=== PATIENT | male | born 1955 | race Caucasian/White ===

== ENCOUNTER 2018-01-22 19:03 | Emergency (ER) | payer OTHER, SELFPAY ==
[2018-01-22 19:38] VITALS: BP 122/70; PULSE 80; RESP 16; TEMP 36.9; O2SAT 98; BMI 24.5
--- NOTE | 2018-01-22 20:40 | ED_ITS ---
HPI - Skin/Abscess/Foreign Bdy <ETHEL Zaragoza - Last Filed: 01/22/18 22:43> General Chief complaint: Skin/Abscess/Foreign Body Stated complaint: FINGER CUT Time Seen by Provider: 01/22/18 20:40 History of Present Illness HPI narrative: 62-year-old male here for complaint of laceration to his left ring finger. He states that he was using a razor blade knife to cut some felt when he accidentally cut his finger. Laceration is into the distal pad of the left ring finger. He states his liver status was approximately 2 years ago. He denies any other injuries or concerns at this point. complaint: laceration Related Data Home Medications Medication Instructions Recorded Confirmed [ENBREL] QWEEK #0 08/30/08 Previous Rx's Medication Instructions Recorded sulfamethoxazole-trimethoprim 1 tab PO BID #10 tab 03/19/16 Allergies Allergy/AdvReac Type Severity Reaction Status Date / Time No Known Drug Allergies Allergy Verified 01/22/18 19:42 Review of Systems <ETHEL Zaragoza - Last Filed: 01/22/18 22:43> Constitutional Denies chills, Denies fever(s), Denies lethargy and Denies weakness Eyes Denies change in vision, Denies eye discharge, Denies irritation and Denies loss of vision ENT Ears, Nose, Mouth, and Throat: Denies change in voice, Denies neck pain and Denies sore throat Cardiovascular Denies chest pain, Denies irregular heart rhythm, Denies lightheadedness, Denies palpitations, Denies dyspnea, Denies dyspnea on exertion and Denies orthopnea Respiratory Denies cough, Denies dyspnea, Denies dyspnea on exertion and Denies wheezing Gastrointestinal Gastrointestinal: Denies abdominal pain, Denies change in bowel habits, Denies diarrhea, Denies nausea and Denies vomiting Genitourinary Denies hematuria, Denies flank pain, Denies urinary incontinence and Denies urinary urgency Musculoskeletal Denies neck pain Comments: 1.5 cm laceration to distal pad of left index finger. Integumentary/Breasts Denies pruritus, Denies erythema, Denies rash and Denies wounds Neurologic Denies confusion, Denies loss of vision and Denies weakness Psychiatric Denies anxiety, Denies confusion, Denies depression, Denies homicidal ideation and Denies suicidal ideation Endocrine Denies palpitations Hematologic/Lymphatic Denies easy bruising Allergic/Immunologic Denies wheezing Exam <ETHEL Zaragoza - Last Filed: 01/22/18 22:43> Initial Vital Signs Initial Vital Signs: Vital Signs Temperature 98.5 F 01/22/18 19:38 Pulse Rate 80 01/22/18 19:38 Respiratory Rate 16 01/22/18 19:38 Blood Pressure 122/70 H 01/22/18 19:38 Pulse Oximetry 98 01/22/18 19:38 Const General: cooperative and well developed Nutritional Appearance: well nourished Orientation: alert, awake, oriented x3 and not confused HENMT Mouth: oral mucosae normal and moist mucous membranes Eyes General: appearance normal, both eyes and all related structures Eyelids: eyelids normal Conjunctivae: conjunctivae normal Sclera: sclerae normal Pupils: PERRL EOM: EOM intact bilaterally Resp Effort & Inspection: normal respiratory effort, able to speak in complete sentences, no respiratory distress and no use of accessory muscles Auscultation: clear to auscultation bilaterally, no rales, no rhonchi and wheezes (Slight expiratory wheezing bilateral lower lobes) inspiratory wheezes and lower bilaterally Cardio Rate: regular rate Rhythm: regular rhythm Heart Sounds: no click, no gallops, no murmurs and no rubs Pulses: normal peripheral pulses GI Inspection: non-distended Palpation: soft, no hepatosplenomegaly, No guarding, No pulsatile mass and No tender Auscultation: normal bowel sounds Skin General: no rashes or lesions noted, No jaundice and No petechiae Neuro General: alert, oriented x3, gait normal and no focal motor deficits Speech: speech normal <Chidi Garcia DO - Last Filed: 01/23/18 02:11> Initial Vital Signs Initial Vital Signs: Vital Signs Temperature 98.5 F 01/22/18 19:38 Pulse Rate 80 01/22/18 19:38 Respiratory Rate 16 01/22/18 19:38 Blood Pressure 122/70 H 01/22/18 19:38 Pulse Oximetry 98 01/22/18 19:38 Procedures <ETHEL Zaragoza - Last Filed: 01/22/18 22:43> Laceration Repair Laceration 1: Site: hand and other (Pat of left ring finger) Side (If applicable): left Size (cm): 1.5 Description: linear Depth: simple, single layer Local Anesthetic: lidocaine 1% Amount of anesthesia used (mL): 2 Pre-repair: wound explored and irrigated extensively Skin layer closed with: nylon Size (cm): 5-0 Number of sutures: 3 Technique: simple, interrupted Size: 5-0 Course <ETHEL Zaragoza - Last Filed: 01/22/18 22:43> Vital Signs - 8 hr 01/22/18 19:38 01/22/18 21:34 01/22/18 22:27 Temperature 98.5 F 98.5 F Pulse Rate 80 80 79 Respiratory Rate 16 16 14 Blood Pressure 122/70 H 122/70 H 123/80 H Pulse Oximetry 98 98 97 <Chidi Garcia DO - Last Filed: 01/23/18 02:11> Vital Signs - 8 hr 01/22/18 19:38 01/22/18 21:34 01/22/18 22:27 Temperature 98.5 F 98.5 F Pulse Rate 80 80 79 Respiratory Rate 16 16 14 Blood Pressure 122/70 H 122/70 H 123/80 H Pulse Oximetry 98 98 97 MDM - Skin/Abscess/Foreign Bdy <ETHEL Zaragoza - Last Filed: 01/22/18 22:43> MDM Narrative Medical decision making narrative: Laceration to left ring finger was closed with 3 sutures. Sutures to be removed in 7-10 days. Wound dressed with bacitracin and a dressing. Keep her original wound dressing on for 24 hr. After this timeframe may shower briefly. Dry wound after shower and redressed with bacitracin dressing. Dress wound daily with bacitracin and a dressing until healed. [id number] Tylenol or Motrin as needed for any discomfort. Follow up with primary care provider. For any worsening symptoms or signs of infection return emergency room. Discharge Plan Departure Patient Disposition: Home, Self-Care Clinical Impression: Laceration of left ring finger Discharge Date/Time: 01/22/18 22:28 Interventions: ED Discharge Assessment Last Done: 01/22/18 22:27 Instructions: DI for Laceration Repair -- Finger Activity Restrictions/Additional Instructions: Laceration to left ring finger was closed with 3 sutures. Sutures to be removed in 7-10 days. Wound dressed with bacitracin and a dressing. Keep her original wound dressing on for 24 hr. After this timeframe may shower briefly. Dry wound after shower and redressed with bacitracin dressing. Dress wound daily with bacitracin and a dressing until healed. [id number] Tylenol or Motrin as needed for any discomfort. Follow up with primary care provider. For any worsening symptoms or signs of infection return emergency room. Prescriptions: No Action [ENBREL] QWEEK Qty: 0 RF: 0 sulfamethoxazole-trimethoprim 800 MG/160 MG tablet 1 tab PO BID Qty: 10 RF: 0 Referrals: [facility] [Provider Group] <Chidi Garcia, - Last Filed: 01/23/18 02:11> Cosign ED Attending [place] Attestation: I was immediately available in the department for consultation. Documentation has been reviewed. I agree with assessment and plan.
[2018-01-22 21:34] VITALS: BP 122/70; PULSE 80; RESP 16; TEMP 36.9; O2SAT 98; BMI 24.5
--- NOTE | 2018-01-22 21:36 | PC.NURSE ---
PT has lac to left ring finger from razor blade, denies pain, bleeding controlled, cms intact.
[2018-01-22 22:27] VITALS: BP 123/80; PULSE 79; RESP 14; O2SAT 97
== END 2018-01-22 22:28 | disposition home or self-care (01) ==
PROVIDERS: Emergency Provider Nurse Practitioner Family
DX: S61.215A Laceration without foreign body of left ring finger without damage to nail, initial encounter (principal); W26.0XXA Contact with knife, initial encounter
CPT/HCPCS: 12001; 99282; 99283

== ENCOUNTER 2020-05-24 19:25 | Inpatient (IN) | payer OTHER, SELFPAY ==
[2020-05-24 19:50] VITALS: BP 136/80; PULSE 113; RESP 16; TEMP 36.6; O2SAT 97; BMI 25.8
--- NOTE | 2020-05-24 21:29 | DI.RAD.S_ITS ---
PROCEDURE: XR THORACIC SPINE 2V INDICATIONS: midthorasic severe pain TECHNIQUE: 2 views of the thoracic spine were acquired. COMPARISON: [facility], , CHEST 2VW, 01/21/2014, 13:07. FINDINGS: Bones: No fractures or dislocations. No suspicious bony lesions. Twelve pairs of ribs are noted, and appear intact where visualized. Multilevel degenerative disc disease. Soft tissues: No paravertebral stripe thickening. Biapical lung scarring is noted which does not appear significantly changed compared to prior chest x-ray IMPRESSION: No fracture. No acute osseous lesion. If symptoms and/or clinical suspicion for pathology persists, evaluation with MRI may be helpful for further assessment. Dictated by: Fiona Durand MD, PhD on 05/25/2020 at 8:51 Approved by: Fiona Durand MD, PhD on 05/25/2020 at 8:53
--- NOTE | 2020-05-24 21:30 | DI.CT.S_ITS ---
PROCEDURE: CT ABDOMEN PELVIS W CON INDICATIONS: epigastric pain radiating to spine TECHNIQUE: After the administration of intravenous contrast, 5 mm thick sections acquired from the diaphragm to the symphysis. 5 mm coronal and sagittal reformats were acquired. For radiation dose reduction, the following was used: automated exposure control, adjustment of mA and/or kV according to patient size. COMPARISON: None. FINDINGS: Image quality: Excellent. ABDOMEN: Lung bases: Lung bases are abnormal with severe emphysematous change and lung scarring but no mass or pneumonia is seen. Heart size is normal. Solid organs: Liver is normal in size and enhancement. Gallbladder contains multiple moderate and large calculi, without evidence of definite acute cholecystitis or adjacent biliary obstruction.. Biliary system is non dilated. Pancreas enhances normally. Spleen is normal in size and enhancement. No adrenal nodules. Kidneys demonstrate normal size and enhancement, without hydronephrosis. Peritoneum and bowel: Bowel loops demonstrate normal wall thickness and caliber. No free fluid or air. There are several small gas bubbles that appear eccentric at the right anterolateral margin of the duodenal bulb, conceivably a manifestation of peptic ulcer disease. This is best seen on series 2 image 29. However, immediate adjacent prominent edema in the surrounding fat is not seen. There also is a finding of mild low attenuation with mild stranding in the fat adjacent to the pancreatic head best seen on series 2, image 37. Nodes and vessels: No retroperitoneal or mesenteric adenopathy by size criteria. Aorta and inferior vena cava are normal in size. Miscellaneous: No ventral hernias. PELVIS: Genitourinary: Bladder wall thickness is normal. Miscellaneous: No inguinal hernias or adenopathy. Bones: No suspicious bony lesions. No vertebral body compression fractures. IMPRESSION: There are 3 separate finding centered at the right upper quadrant as potential etiology for the symptomatology reported. These include moderate and large gallstones within the gallbladder lumen. Secondly, there are eccentric anterolateral duodenal bulb gas bubbles that conceivably could be within the wall of the duodenum rather than intraluminal. Peptic ulcer disease could produce that appearance. Finally, there is suspected mild pancreatitis at the pancreatic head causing slight adjacent fat stranding and low-attenuation at the pancreatic head without mass. Severe emphysematous change partially visualized at the lung bases. Dictated by: Cornelius Kumar M.D. on 05/25/2020 at 8:24 Approved by: Cornelius Kumar M.D. on 05/25/2020 at 8:35
[2020-05-24 21:57] LABS: Add Manual Diff / Slide Review NO; Basophils Absolute Auto 0 /uL (0-100); Basophils Percent Auto 0.3 % (0-2); Eosinophils Absolute Auto 100 /uL (0-450); Eosinophils Percent Auto 0.6 % (2-4); Hematocrit 45.3 % (41-53); Hemoglobin 15.4 g/dL (13.5-17.5); Lymphocytes Absolute Auto 900 /uL (1100-4500); Mean Corpuscular Hemoglobin 30.5 PG (26-34); Mean Corpuscular Volume 89.7 fL (80-100); Monocytes Absolute Auto 1700 /uL (0-900); Monocytes Percent Auto 11.7 % (3-14); Neutrophils Absolute Auto 12100 /uL (1500-7000); Neutrophils Percent Auto 81.4 % (50-75); Platelet Count 288 X10^3/uL (150-400); Red Blood Cell Count 5.05 X10^6/uL (4.5-5.9); Red Cell Distribution Width 13.6 % (11.6-14.8); White Blood Cell Count 14.8 X10^3/uL (4.5-11.0)
[2020-05-24] MEDS: HYDROMORPHONE 0.5 MG INJ IV ×2 (21:58→23:19)
[2020-05-24 22:09] LABS: COVID19 -Nasal RAPID Negative (Negative)
[2020-05-24 22:13] LABS: Alanine Aminotransferase 242 IU/L (<50); Albumin 4.4 g/dL (3.5-5.0); Alkaline Phosphatase 343 U/L (38-126); Aspartate Aminotransferase 63 IU/L (17-59); BUN Creatinine Ratio 12.5 (6-22); Blood Urea Nitrogen 9 mg/dL (9-20); Calcium 9.4 mg/dL (8.4-10.2); Carbon Dioxide 28 mmol/L (22-32); Chloride 95 mmol/L (98-107); Estimated Glomerular Filt Rate > 60.0 mL/min (>60); Globulin 4.4 g/dL (1.7-4.1); Glucose 124 mg/dL (80-110); HEMOLYSIS < 15 (0-50); Lipase 303 U/L (23-300); Magnesium 1.7 mg/dL (1.6-2.3); Potassium 3.6 mmol/L (3.4-5.1); Sodium 131 mmol/L (137-145); Total Protein 8.8 g/dL (6.3-8.2)
[2020-05-24 22:17] LABS: Lactate (Lactic Acid) 1.3 mmol/L (0.7-2.1)
[2020-05-24 22:24] LABS: Troponin I < 0.012 ng/mL (0.01-0.034)
[2020-05-24 22:25] LABS: Procalcitonin 0.19 ng/mL (<0.5)
[2020-05-24 22:43] VITALS: PULSE 106; RESP 24; O2SAT 98
[2020-05-24 22:46] VITALS: BP 142/90; PULSE 105; RESP 24; O2SAT 96
[2020-05-24] MEDS: MAG HYDROX/ALUMINUM/SIMETH SUS 20 ML, LIDOCAINE VISCOUS 2% 15 ML PO (22:55)
[2020-05-24 23:00] VITALS: BP 153/94; PULSE 103; RESP 24; O2SAT 96
--- NOTE | 2020-05-24 23:16 | ED.GENADULT ---
HPI - General Adult <Laura Kumar MD - Last Filed: 05/26/20 03:15> General Chief complaint: Back Pain/Injury Stated complaint: sharp pain in back Time Seen by Provider: 05/24/20 21:17 History of Present Illness HPI narrative: 65-year-old gentleman with ankylosing spondylitis currently on Enbrel and daily Motrin, restless leg syndrome, presents severe midthoracic back pain that is been present for 3 days and is getting worse. On further questioning he also notes that he has had some mid abdominal pain, mild abdominal distension and his last bowel movement was normal yesterday. Reports no black stools, no chills no fevers no dizziness but he states the pain is severe enough that he can not get comfortable. It is worse with movement but not with deep breathing. He reports no cough, fevers, chills, wheeze, lower extremity edema or orthopnea. Related Data Home Medications Medication Instructions Recorded Confirmed cholecalciferol (vitamin D3) 25 mcg PO DAILY 05/25/20 05/25/20 etanercept 50 mg SUBCUT WEEKLY 05/25/20 05/25/20 ferrous sulfate 325 mg PO TID 05/25/20 05/25/20 gabapentin 300 mg PO BID 05/25/20 05/25/20 ibuprofen 600 mg PO Q6H PRN 05/25/20 05/25/20 pramipexole 1 mg PO BID 05/25/20 05/25/20 Allergies Allergy/AdvReac Type Severity Reaction Status Date / Time No Known Drug Allergies Allergy Verified 01/22/18 19:42 Review of Systems <Laura Kumar MD - Last Filed: 05/26/20 03:15> Review of Systems Narrative: Remainder of review of systems including constitutional, ENT, cardiovascular, respiratory, GI, , musculoskeletal, skin, neurologic and psychiatric systems reviewed and are unremarkable except as noted in HPI. Patient History <Laura Kumar MD - Last Filed: 05/26/20 03:15> Medical History Ankylosing spondylitis (Acute) Restless leg syndrome (Acute) Spontaneous pneumothorax (Acute) Social History household members: spouse Smoking Status: Former smoker Smoking Status: Current every day smoker alcohol intake frequency: other Substance Use Type: does not use Exam <Laura Kumar MD - Last Filed: 05/26/20 03:15> Narrative Exam Narrative: General: Pale with significant pain midthoracic spine. Able to give a complete and coherent history. Well-nourished well-developed HEENT: Moist mucous membranes, normal sclera with reactive pupils, Neck: No JVD, supple Respiratory: Lungs are clear to auscultation, no wheezing no rales no rhonchi. Full and symmetrical air movement Cardiac: Mild tachycardia but Regular rate and rhythm no murmurs no bruits Abdomen: Tender in the epigastrium without rebound or guarding, mild distension with hypoactive bowel tones, no flank pain Spine: There is no point tenderness nor paraspinous muscle spasm around the area of maximum pain (approximately T6-T10) Skin: Pale and dry, no rashes Neurologic: Grossly neurologically intact with no obvious asymmetries or abnormalities Extremities: No trauma, well perfused Psych: Cooperative, appropriate insight and affect Initial Vital Signs Initial Vital Signs: Vital Signs Temperature 97.9 F 05/24/20 19:50 Pulse Rate 113 H 05/24/20 19:50 Respiratory Rate 16 05/24/20 19:50 Blood Pressure 136/80 05/24/20 19:50 Pulse Oximetry 97 05/24/20 19:50 <Kylie Sena DO - Last Filed: 05/25/20 18:07> Initial Vital Signs Initial Vital Signs: Vital Signs Temperature 97.9 F 05/24/20 19:50 Pulse Rate 113 H 05/24/20 19:50 Respiratory Rate 16 05/24/20 19:50 Blood Pressure 136/80 05/24/20 19:50 Pulse Oximetry 97 05/24/20 19:50 Course <Laura Kumar MD - Last Filed: 05/26/20 03:15> Orders Ordered: Docusate Sodium (Colace) 100 mg PO BID [facility] Last Admin: 05/25/20 21:53 Dose: 100 mg Documented by: MSTEWEMERY Gabapentin (Neurontin) 300 mg PO BID [facility] Last Admin: 05/25/20 21:53 Dose: 300 mg Documented by: MSTEWART Heparin Sodium (Porcine) (Heparin) 5,000 unit SUBCUT BID [facility] Last Admin: 05/25/20 21:54 Dose: 5,000 unit Documented by: TAMANNA Hydromorphone HCl (Dilaudid) 0.5 mg IV Q15MIN PRN PRN Reason: Pain, Last Admin: 05/26/20 00:48 Dose: 0.5 mg Documented by: Admin: 05/25/20 07:34 Dose: 0.5 mg Documented by: PAULINE Piperacillin/Tazobactam/Dextrose (Zosyn) 3.375 gm in 50 mls @ 100 mls/hr IV Q6H [facility] Last Infusion: 05/26/20 01:29 Dose: 0 mls/hr Documented by: Admin: 05/26/20 00:40 Dose: 100 mls/hr Documented by: Infusion: 05/25/20 20:00 Dose: 0 mls/hr Documented by: Admin: 05/25/20 19:30 Dose: 100 mls/hr Documented by: Infusion: 05/25/20 14:34 Dose: 0 mls/hr Documented by: Admin: 05/25/20 13:23 Dose: 100 mls/hr Documented by: Infusion: 05/25/20 08:30 Dose: 0 mls/hr Documented by: Admin: 05/25/20 07:35 Dose: 100 mls/hr Documented by: PAULINE Lactated Ringer's (Lactated Ringers) 1,000 mls @ 150 mls/hr IV CONT [facility] Last Admin: 05/26/20 00:41 Dose: 150 mls/hr Documented by: Infusion: 05/26/20 00:28 Dose: 150 mls/hr Documented by: Admin: 05/25/20 17:47 Dose: 150 mls/hr Documented by: Infusion: 05/25/20 17:22 Dose: 150 mls/hr Documented by: Admin: 05/25/20 10:41 Dose: 150 mls/hr Documented by: PAULINE Influenza Virus Vaccine (Flu Vaccine) 0.5 ml IM .ONCE ONE Stop: 05/26/20 09:01 Ondansetron HCl (Zofran) 4 mg IV Q6HR PRN PRN Reason: Nausea And Vomiting Pantoprazole Sodium (Protonix) 40 mg IV BID [facility] Last Admin: 05/25/20 21:54 Dose: 40 mg Documented by: Admin: 05/25/20 14:34 Dose: 40 mg Documented by: TESSA Pramipexole Dihydrochloride (Mirapex) 1 mg PO BID [facility] Last Admin: 05/25/20 21:54 Dose: 1 mg Documented by: TAMANNA Discontinued Medications Al Hydrox/Mg Hydrox/Simethicone 20 ml/ Lidocaine HCl 15 ml 0 ml PO NOW ONE Stop: 05/24/20 22:48 Last Admin: 05/24/20 22:55 Dose: 35 ml Documented by: KATELYNN Hydromorphone HCl (Dilaudid) 0.5 mg IV Q15MIN PRN PRN Reason: Pain, Last Admin: 05/25/20 21:57 Dose: 0.5 mg Documented by: Admin: 05/25/20 14:34 Dose: 0.5 mg Documented by: Admin: 05/25/20 09:55 Dose: 0.5 mg Documented by: Admin: 05/25/20 03:43 Dose: 0.5 mg Documented by: Admin: 05/25/20 01:19 Dose: 0.5 mg Documented by: Admin: 05/24/20 23:19 Dose: 0.5 mg Documented by: Admin: 05/24/20 21:58 Dose: 0.5 mg Documented by: KATELYNN Piperacillin/Tazobactam/Dextrose (Zosyn) 3.375 gm in 50 mls @ 100 mls/hr IV NOW ONE Stop: 05/25/20 00:02 Last Infusion: 05/25/20 00:38 Dose: 0 mls/hr Documented by: Admin: 05/24/20 23:53 Dose: 100 mls/hr Documented by: KATELYNN Sodium Chloride (Normal Saline 0.9%) 1,000 mls @ 1,000 mls/hr IV BOLUS ONE Stop: 05/25/20 00:32 Last Infusion: 05/25/20 01:16 Dose: 0 mls/hr Documented by: Admin: 05/24/20 23:54 Dose: 1,000 mls/hr Documented by: KATELYNN Vital Signs Vital signs: Vital Signs - 8 hr 05/25/20 02:30 05/25/20 03:00 05/25/20 03:30 Temperature Pulse Rate 96 H 95 H 98 H Respiratory Rate 16 16 19 Blood Pressure 129/75 139/78 141/80 H Pulse Oximetry 91 93 05/25/20 04:00 05/25/20 04:30 05/25/20 05:00 Temperature Pulse Rate 101 H 99 H 105 H Respiratory Rate 20 18 23 Blood Pressure 132/76 136/76 141/77 H Pulse Oximetry 91 93 93 05/25/20 05:30 05/25/20 06:00 05/25/20 06:29 Temperature Pulse Rate 106 H 104 H 108 H Respiratory Rate 22 25 H 22 Blood Pressure 148/86 H 147/86 H 152/88 H Pulse Oximetry 93 94 94 05/25/20 06:30 05/25/20 07:00 05/25/20 07:30 Temperature Pulse Rate 107 H 106 H 106 H Respiratory Rate 22 28 H 64 H Blood Pressure 152/88 H 160/96 H 159/79 H Pulse Oximetry 94 94 95 05/25/20 07:44 Temperature 99.0 F Pulse Rate Respiratory Rate Blood Pressure Pulse Oximetry <Kylie Sena, - Last Filed: 05/25/20 18:07> Orders Ordered: Docusate Sodium (Colace) 100 mg PO BID [facility] Last Admin: 05/25/20 21:53 Dose: 100 mg Documented by: MSTNOEMY Gabapentin (Neurontin) 300 mg PO BID [facility] Last Admin: 05/25/20 21:53 Dose: 300 mg Documented by: MSTNOEMY Heparin Sodium (Porcine) (Heparin) 5,000 unit SUBCUT BID [facility] Last Admin: 05/25/20 21:54 Dose: 5,000 unit Documented by: TAMANNA Hydromorphone HCl (Dilaudid) 0.5 mg IV Q15MIN PRN PRN Reason: Pain, Last Admin: 05/26/20 00:48 Dose: 0.5 mg Documented by: Admin: 05/25/20 07:34 Dose: 0.5 mg Documented by: PAULINE Piperacillin/Tazobactam/Dextrose (Zosyn) 3.375 gm in 50 mls @ 100 mls/hr IV Q6H [facility] Last Infusion: 05/26/20 01:29 Dose: 0 mls/hr Documented by: Admin: 05/26/20 00:40 Dose: 100 mls/hr Documented by: Infusion: 05/25/20 20:00 Dose: 0 mls/hr Documented by: Admin: 05/25/20 19:30 Dose: 100 mls/hr Documented by: Infusion: 05/25/20 14:34 Dose: 0 mls/hr Documented by: Admin: 05/25/20 13:23 Dose: 100 mls/hr Documented by: Infusion: 05/25/20 08:30 Dose: 0 mls/hr Documented by: Admin: 05/25/20 07:35 Dose: 100 mls/hr Documented by: PAULINE Lactated Ringer's (Lactated Ringers) 1,000 mls @ 150 mls/hr IV CONT [facility] Last Admin: 05/26/20 00:41 Dose: 150 mls/hr Documented by: Infusion: 05/26/20 00:28 Dose: 150 mls/hr Documented by: Admin: 05/25/20 17:47 Dose: 150 mls/hr Documented by: Infusion: 05/25/20 17:22 Dose: 150 mls/hr Documented by: Admin: 05/25/20 10:41 Dose: 150 mls/hr Documented by: PAULINE Influenza Virus Vaccine (Flu Vaccine) 0.5 ml IM .ONCE ONE Stop: 05/26/20 09:01 Ondansetron HCl (Zofran) 4 mg IV Q6HR PRN PRN Reason: Nausea And Vomiting Pantoprazole Sodium (Protonix) 40 mg IV BID [facility] Last Admin: 05/25/20 21:54 Dose: 40 mg Documented by: Admin: 05/25/20 14:34 Dose: 40 mg Documented by: TESSA Pramipexole Dihydrochloride (Mirapex) 1 mg PO BID [facility] Last Admin: 05/25/20 21:54 Dose: 1 mg Documented by: TAMANNA Discontinued Medications Al Hydrox/Mg Hydrox/Simethicone 20 ml/ Lidocaine HCl 15 ml 0 ml PO NOW ONE Stop: 05/24/20 22:48 Last Admin: 05/24/20 22:55 Dose: 35 ml Documented by: KATELYNN Hydromorphone HCl (Dilaudid) 0.5 mg IV Q15MIN PRN PRN Reason: Pain, Last Admin: 05/25/20 21:57 Dose: 0.5 mg Documented by: Admin: 05/25/20 14:34 Dose: 0.5 mg Documented by: Admin: 05/25/20 09:55 Dose: 0.5 mg Documented by: Admin: 05/25/20 03:43 Dose: 0.5 mg Documented by: Admin: 05/25/20 01:19 Dose: 0.5 mg Documented by: Admin: 05/24/20 23:19 Dose: 0.5 mg Documented by: Admin: 05/24/20 21:58 Dose: 0.5 mg Documented by: KATELYNN Piperacillin/Tazobactam/Dextrose (Zosyn) 3.375 gm in 50 mls @ 100 mls/hr IV NOW ONE Stop: 05/25/20 00:02 Last Infusion: 05/25/20 00:38 Dose: 0 mls/hr Documented by: Admin: 05/24/20 23:53 Dose: 100 mls/hr Documented by: KATELYNN Sodium Chloride (Normal Saline 0.9%) 1,000 mls @ 1,000 mls/hr IV BOLUS ONE Stop: 05/25/20 00:32 Last Infusion: 05/25/20 01:16 Dose: 0 mls/hr Documented by: Admin: 05/24/20 23:54 Dose: 1,000 mls/hr Documented by: KATELYNN Reevaluation(s) Reevaluation #1: Patient signed out to myself. Plan for MRCP around 0830, if positive for stone plan to recontact [facility] and gastroentrology, if negative will re-evaluate for final disposition. Patient receiving 2nd dose of Zosyn here in department. NPO. Patient is still quite uncomfortable and given additional dose of pain medication. Time: 07:36 Reevaluation #2: Patient had repeat dose of pain medication I reviewed his MRI results which do not show signs of a common bile duct stone but patient does have gallstones as well as some thickening of the gallbladder, possible mild pancreatitis. There was concern for small gas bubbles in the duodenal area but on MRI this is not appreciated and they suspect it was gas bubbles trapped in the folds of the duodenum. Patient was updated, consultation with General surgery they are currently in the OR but will come see the patient. Plan to continue Zosyn, pain medications and IV fluids Time: 10:15 Consultations Consultation #1: Spoke with Dr. Mathur, discussed concerns for cholecystitis as well as coli lithiasis. Maybe a mild pancreatitis as well. There was not a common bile duct stone noted on MRCP although this was a concern earlier overnight. She will come to see the patient, plan for admission, IV antibiotics, fluids as well as antinausea medications and pain control. Patient has continued to be NPO. Time: 10:17 Vital Signs Vital signs: Vital Signs - 8 hr 05/25/20 02:30 05/25/20 03:00 05/25/20 03:30 Temperature Pulse Rate 96 H 95 H 98 H Respiratory Rate 16 16 19 Blood Pressure 129/75 139/78 141/80 H Pulse Oximetry 91 93 05/25/20 04:00 05/25/20 04:30 05/25/20 05:00 Temperature Pulse Rate 101 H 99 H 105 H Respiratory Rate 20 18 23 Blood Pressure 132/76 136/76 141/77 H Pulse Oximetry 91 93 93 05/25/20 05:30 05/25/20 06:00 05/25/20 06:29 Temperature Pulse Rate 106 H 104 H 108 H Respiratory Rate 22 25 H 22 Blood Pressure 148/86 H 147/86 H 152/88 H Pulse Oximetry 93 94 94 05/25/20 06:30 05/25/20 07:00 05/25/20 07:30 Temperature Pulse Rate 107 H 106 H 106 H Respiratory Rate 22 28 H 64 H Blood Pressure 152/88 H 160/96 H 159/79 H Pulse Oximetry 94 94 95 05/25/20 07:44 Temperature 99.0 F Pulse Rate Respiratory Rate Blood Pressure Pulse Oximetry Medical Decision Making <Laura Kumar MD - Last Filed: 05/26/20 03:15> Medical Records Medical records reviewed: Yes I reviewed the patient's medical records. Lab Data Lab results reviewed: Yes I reviewed the patient's lab results. Result diagrams: 05/25/20 17:08 05/25/20 17:08 Labs: Lab Results 05/24/20 05/24/20 05/24/20 Range/Units 21:40 21:40 21:40 WBC 14.8 H (4.5-11.0) X10^3/uL RBC 5.05 (4.5-5.9) X10^6/uL Hgb 15.4 (13.5-17.5) g/dL Hct 45.3 (41-53) % MCV 89.7 (80-100) fL MCH 30.5 (26-34) PG MCHC 34.0 (30-36) % RDW 13.6 (11.6-14.8) % Plt Count 288 (150-400) X10^3/uL Neut % (Auto) 81.4 H (50-75) % Lymph % (Auto) 6.0 L (25-40) % [place] % (Auto) 11.7 (3-14) % Eos % (Auto) 0.6 L (2-4) % Baso % (Auto) 0.3 (0-2) % Neut # (Auto) 00266 H (5138-2796) /uL Lymph # (Auto) 900 L (7980-6746) /uL [place] # (Auto) 1700 H (0-900) /uL Eos # (Auto) 100 (0-450) /uL Baso # (Auto) 0 (0-100) /uL Sodium 131 L (137-145) mmol/L Potassium 3.6 (3.4-5.1) mmol/L Chloride 95 L (98-107) mmol/L Carbon Dioxide 28 (22-32) mmol/L BUN 9 (9-20) mg/dL Creatinine 0.72 (0.66-1.25) mg/dL Estimated GFR > 60.0 (>60) mL/min BUN/Creatinine Ratio 12.5 (6-22) Glucose 124 H (80-110) mg/dL Lactate (0.7-2.1) mmol/L Calcium 9.4 (8.4-10.2) mg/dL Magnesium 1.7 (1.6-2.3) mg/dL Total Bilirubin 3.0 H (0.2-1.3) mg/dL AST 63 H (17-59) IU/L ALT 242 H (<50) IU/L Alkaline Phosphatase 343 H (38-126) U/L Troponin I < 0.012 (0.01-0.034) ng/mL C-Reactive Protein 7.7 H (<1.0) mg/dL Total Protein 8.8 H (6.3-8.2) g/dL Albumin 4.4 (3.5-5.0) g/dL Globulin 4.4 H (1.7-4.1) g/dL Albumin/Globulin Ratio 1.0 (1.0-2.8) Lipase 303 H (23-300) U/L Procalcitonin (<0.5) ng/mL Urine Color Urine Appearance Urine pH (4.5-8.0) Ur Specific [place] (1.000-1.035) Urine Protein (Negative) Urine Glucose (UA) (Negative) g/dL Urine Ketones (NEGATIVE) Urine Occult Blood (Negative) Urine Nitrate (Negative) Urine Bilirubin (NEGATIVE) Ur Bilirubin Confirm (Negative) Urine Urobilinogen (0.2) E.U./dL Ur Leukocyte Esterase (NEGATIVE) Urine RBC (0-5/HPF) Urine WBC (0-5/HPF) Urine Bacteria (None) Urine Mucus (Negative) Ur Culture Indicated? COVID-19 PCR (Negative) 05/24/20 05/24/20 05/24/20 Range/Units 21:40 21:40 21:40 WBC (4.5-11.0) X10^3/uL RBC (4.5-5.9) X10^6/uL Hgb (13.5-17.5) g/dL Hct (41-53) % MCV (80-100) fL MCH (26-34) PG MCHC (30-36) % RDW (11.6-14.8) % Plt Count (150-400) X10^3/uL Neut % (Auto) (50-75) % Lymph % (Auto) (25-40) % [place] % (Auto) (3-14) % Eos % (Auto) (2-4) % Baso % (Auto) (0-2) % Neut # (Auto) (2773-6361) /uL Lymph # (Auto) (3433-9408) /uL [place] # (Auto) (0-900) /uL Eos # (Auto) (0-450) /uL Baso # (Auto) (0-100) /uL Sodium (137-145) mmol/L Potassium (3.4-5.1) mmol/L Chloride (98-107) mmol/L Carbon Dioxide (22-32) mmol/L BUN (9-20) mg/dL Creatinine (0.66-1.25) mg/dL Estimated GFR (>60) mL/min BUN/Creatinine Ratio (6-22) Glucose (80-110) mg/dL Lactate 1.3 (0.7-2.1) mmol/L Calcium (8.4-10.2) mg/dL Magnesium (1.6-2.3) mg/dL Total Bilirubin (0.2-1.3) mg/dL AST (17-59) IU/L ALT (<50) IU/L Alkaline Phosphatase (38-126) U/L Troponin I (0.01-0.034) ng/mL C-Reactive Protein (<1.0) mg/dL Total Protein (6.3-8.2) g/dL Albumin (3.5-5.0) g/dL Globulin (1.7-4.1) g/dL Albumin/Globulin Ratio (1.0-2.8) Lipase (23-300) U/L Procalcitonin 0.19 (<0.5) ng/mL Urine Color Urine Appearance Urine pH (4.5-8.0) Ur Specific [place] (1.000-1.035) Urine Protein (Negative) Urine Glucose (UA) (Negative) g/dL Urine Ketones (NEGATIVE) Urine Occult Blood (Negative) Urine Nitrate (Negative) Urine Bilirubin (NEGATIVE) Ur Bilirubin Confirm (Negative) Urine Urobilinogen (0.2) E.U./dL Ur Leukocyte Esterase (NEGATIVE) Urine RBC (0-5/HPF) Urine WBC (0-5/HPF) Urine Bacteria (None) Urine Mucus (Negative) Ur Culture Indicated? COVID-19 PCR Negative (Negative) 05/25/20 05/25/20 05/25/20 Range/Units 00:20 05:45 05:45 WBC 15.5 H (4.5-11.0) X10^3/uL RBC 4.47 L (4.5-5.9) X10^6/uL Hgb 13.5 (13.5-17.5) g/dL Hct 40.3 L (41-53) % MCV 90.1 (80-100) fL MCH 30.2 (26-34) PG MCHC 33.5 (30-36) % RDW 13.8 (11.6-14.8) % Plt Count 284 (150-400) X10^3/uL Neut % (Auto) 78.6 H (50-75) % Lymph % (Auto) 7.1 L (25-40) % [place] % (Auto) 12.7 (3-14) % Eos % (Auto) 1.1 L (2-4) % Baso % (Auto) 0.5 (0-2) % Neut # (Auto) 04554 H (0546-4402) /uL Lymph # (Auto) 1100 (9177-6603) /uL [place] # (Auto) 2000 H (0-900) /uL Eos # (Auto) 200 (0-450) /uL Baso # (Auto) 100 (0-100) /uL Sodium 130 L (137-145) mmol/L Potassium 3.6 (3.4-5.1) mmol/L Chloride 94 L (98-107) mmol/L Carbon Dioxide 31 (22-32) mmol/L BUN 10 (9-20) mg/dL Creatinine 0.92 (0.66-1.25) mg/dL Estimated GFR > 60.0 (>60) mL/min BUN/Creatinine Ratio 10.9 (6-22) Glucose 121 H (80-110) mg/dL Lactate (0.7-2.1) mmol/L Calcium 8.6 (8.4-10.2) mg/dL Magnesium (1.6-2.3) mg/dL Total Bilirubin 2.9 H (0.2-1.3) mg/dL AST 50 (17-59) IU/L ALT 173 H (<50) IU/L Alkaline Phosphatase 278 H (38-126) U/L Troponin I (0.01-0.034) ng/mL C-Reactive Protein (<1.0) mg/dL Total Protein 7.9 (6.3-8.2) g/dL Albumin 3.9 (3.5-5.0) g/dL Globulin 4.0 (1.7-4.1) g/dL Albumin/Globulin Ratio 1.0 (1.0-2.8) Lipase (23-300) U/L Procalcitonin (<0.5) ng/mL Urine Color Zainab Urine Appearance Clear Urine pH 6.5 (4.5-8.0) Ur Specific [place] <=1.005 (1.000-1.035) Urine Protein Trace H (Negative) Urine Glucose (UA) Trace H (Negative) g/dL Urine Ketones Trace H (NEGATIVE) Urine Occult Blood 1+ H (Negative) Urine Nitrate Negative (Negative) Urine Bilirubin 1+ H (NEGATIVE) Ur Bilirubin Confirm Positive H (Negative) Urine Urobilinogen 0.2 (0.2) E.U./dL Ur Leukocyte Esterase Negative (NEGATIVE) Urine RBC 0-1/hpf (0-5/HPF) Urine WBC 0-1/hpf (0-5/HPF) Urine Bacteria None seen (None) Urine Mucus 1+ H (Negative) Ur Culture Indicated? Cult not indicated COVID-19 PCR (Negative) Imaging Data CT scan - abdomen/pelvis: Attestation: I personally reviewed and interpreted this imaging study as follows: Radiologist's Impression: Impression: Findings may be related to mild pancreatitis. Cholelithiasis Collapsed descending colon , less likely mild colitis probable slight proximal bowel focal ileus Dr Becky Coffey X-ray two view thoracic spine: Radiologist's Impression: No gross acute fracture seen Becky Coffey MD ECG Data Attestation: I personally reviewed and interpreted this ECG as follows: Interpretation: Sinus rhythm at a rate of 105 normal axis, normal intervals No ischemic changes MDM Narrative Medical decision making narrative: 65-year-old gentleman with initial complaint of midthoracic pain that as studies returning appears that he may have a common bile duct stone with developing pancreatitis. Elevated bilirubin, AST ALT alkaline phosphatase as well as lipase. Slightly elevated white blood cell count. CT scan does not suggest gallbladder wall thickening but does show cholelithiasis. Will begin antibiotics and to make sure that it ascending cholangitis does not develop and will begin working on transfer options to facility has ERCP capacity. Reviewed care with Dr Duncan GI at [facility]. Given the lack of dilated biliary ducts on CT scan her recommendation is MRCP prior to transfer on the possibility that he has passed a stone and has residual findings. Will plan on boarding in the emergency room overnight with MRCP 1st thing in the morning when MRI techs are available. Dispo to follow MRCP read. <Kylie Sena, - Last Filed: 05/25/20 18:07> Lab Data Lab results reviewed: Yes I reviewed the patient's lab results. Labs: Lab Results 05/24/20 05/24/20 05/24/20 Range/Units 21:40 21:40 21:40 WBC 14.8 H (4.5-11.0) X10^3/uL RBC 5.05 (4.5-5.9) X10^6/uL Hgb 15.4 (13.5-17.5) g/dL Hct 45.3 (41-53) % MCV 89.7 (80-100) fL MCH 30.5 (26-34) PG MCHC 34.0 (30-36) % RDW 13.6 (11.6-14.8) % Plt Count 288 (150-400) X10^3/uL Neut % (Auto) 81.4 H (50-75) % Lymph % (Auto) 6.0 L (25-40) % [place] % (Auto) 11.7 (3-14) % Eos % (Auto) 0.6 L (2-4) % Baso % (Auto) 0.3 (0-2) % Neut # (Auto) 31302 H (1691-3861) /uL Lymph # (Auto) 900 L (0964-0968) /uL [place] # (Auto) 1700 H (0-900) /uL Eos # (Auto) 100 (0-450) /uL Baso # (Auto) 0 (0-100) /uL Sodium 131 L (137-145) mmol/L Potassium 3.6 (3.4-5.1) mmol/L Chloride 95 L (98-107) mmol/L Carbon Dioxide 28 (22-32) mmol/L BUN 9 (9-20) mg/dL Creatinine 0.72 (0.66-1.25) mg/dL Estimated GFR > 60.0 (>60) mL/min BUN/Creatinine Ratio 12.5 (6-22) Glucose 124 H (80-110) mg/dL Lactate (0.7-2.1) mmol/L Calcium 9.4 (8.4-10.2) mg/dL Magnesium 1.7 (1.6-2.3) mg/dL Total Bilirubin 3.0 H (0.2-1.3) mg/dL AST 63 H (17-59) IU/L ALT 242 H (<50) IU/L Alkaline Phosphatase 343 H (38-126) U/L Troponin I < 0.012 (0.01-0.034) ng/mL C-Reactive Protein 7.7 H (<1.0) mg/dL Total Protein 8.8 H (6.3-8.2) g/dL Albumin 4.4 (3.5-5.0) g/dL Globulin 4.4 H (1.7-4.1) g/dL Albumin/Globulin Ratio 1.0 (1.0-2.8) Lipase 303 H (23-300) U/L Procalcitonin (<0.5) ng/mL Urine Color Urine Appearance Urine pH (4.5-8.0) Ur Specific [place] (1.000-1.035) Urine Protein (Negative) Urine Glucose (UA) (Negative) g/dL Urine Ketones (NEGATIVE) Urine Occult Blood (Negative) Urine Nitrate (Negative) Urine Bilirubin (NEGATIVE) Ur Bilirubin Confirm (Negative) Urine Urobilinogen (0.2) E.U./dL Ur Leukocyte Esterase (NEGATIVE) Urine RBC (0-5/HPF) Urine WBC (0-5/HPF) Urine Bacteria (None) Urine Mucus (Negative) Ur Culture Indicated? COVID-19 PCR (Negative) 05/24/20 05/24/20 05/24/20 Range/Units 21:40 21:40 21:40 WBC (4.5-11.0) X10^3/uL RBC (4.5-5.9) X10^6/uL Hgb (13.5-17.5) g/dL Hct (41-53) % MCV (80-100) fL MCH (26-34) PG MCHC (30-36) % RDW (11.6-14.8) % Plt Count (150-400) X10^3/uL Neut % (Auto) (50-75) % Lymph % (Auto) (25-40) % [place] % (Auto) (3-14) % Eos % (Auto) (2-4) % Baso % (Auto) (0-2) % Neut # (Auto) (8981-0426) /uL Lymph # (Auto) (5355-3873) /uL [place] # (Auto) (0-900) /uL Eos # (Auto) (0-450) /uL Baso # (Auto) (0-100) /uL Sodium (137-145) mmol/L Potassium (3.4-5.1) mmol/L Chloride (98-107) mmol/L Carbon Dioxide (22-32) mmol/L BUN (9-20) mg/dL Creatinine (0.66-1.25) mg/dL Estimated GFR (>60) mL/min BUN/Creatinine Ratio (6-22) Glucose (80-110) mg/dL Lactate 1.3 (0.7-2.1) mmol/L Calcium (8.4-10.2) mg/dL Magnesium (1.6-2.3) mg/dL Total Bilirubin (0.2-1.3) mg/dL AST (17-59) IU/L ALT (<50) IU/L Alkaline Phosphatase (38-126) U/L Troponin I (0.01-0.034) ng/mL C-Reactive Protein (<1.0) mg/dL Total Protein (6.3-8.2) g/dL Albumin (3.5-5.0) g/dL Globulin (1.7-4.1) g/dL Albumin/Globulin Ratio (1.0-2.8) Lipase (23-300) U/L Procalcitonin 0.19 (<0.5) ng/mL Urine Color Urine Appearance Urine pH (4.5-8.0) Ur Specific [place] (1.000-1.035) Urine Protein (Negative) Urine Glucose (UA) (Negative) g/dL Urine Ketones (NEGATIVE) Urine Occult Blood (Negative) Urine Nitrate (Negative) Urine Bilirubin (NEGATIVE) Ur Bilirubin Confirm (Negative) Urine Urobilinogen (0.2) E.U./dL Ur Leukocyte Esterase (NEGATIVE) Urine RBC (0-5/HPF) Urine WBC (0-5/HPF) Urine Bacteria (None) Urine Mucus (Negative) Ur Culture Indicated? COVID-19 PCR Negative (Negative) 05/25/20 05/25/20 05/25/20 Range/Units 00:20 05:45 05:45 WBC 15.5 H (4.5-11.0) X10^3/uL RBC 4.47 L (4.5-5.9) X10^6/uL Hgb 13.5 (13.5-17.5) g/dL Hct 40.3 L (41-53) % MCV 90.1 (80-100) fL MCH 30.2 (26-34) PG MCHC 33.5 (30-36) % RDW 13.8 (11.6-14.8) % Plt Count 284 (150-400) X10^3/uL Neut % (Auto) 78.6 H (50-75) % Lymph % (Auto) 7.1 L (25-40) % [place] % (Auto) 12.7 (3-14) % Eos % (Auto) 1.1 L (2-4) % Baso % (Auto) 0.5 (0-2) % Neut # (Auto) 39686 H (7297-3220) /uL Lymph # (Auto) 1100 (0367-3886) /uL [place] # (Auto) 2000 H (0-900) /uL Eos # (Auto) 200 (0-450) /uL Baso # (Auto) 100 (0-100) /uL Sodium 130 L (137-145) mmol/L Potassium 3.6 (3.4-5.1) mmol/L Chloride 94 L (98-107) mmol/L Carbon Dioxide 31 (22-32) mmol/L BUN 10 (9-20) mg/dL Creatinine 0.92 (0.66-1.25) mg/dL Estimated GFR > 60.0 (>60) mL/min BUN/Creatinine Ratio 10.9 (6-22) Glucose 121 H (80-110) mg/dL Lactate (0.7-2.1) mmol/L Calcium 8.6 (8.4-10.2) mg/dL Magnesium (1.6-2.3) mg/dL Total Bilirubin 2.9 H (0.2-1.3) mg/dL AST 50 (17-59) IU/L ALT 173 H (<50) IU/L Alkaline Phosphatase 278 H (38-126) U/L Troponin I (0.01-0.034) ng/mL C-Reactive Protein (<1.0) mg/dL Total Protein 7.9 (6.3-8.2) g/dL Albumin 3.9 (3.5-5.0) g/dL Globulin 4.0 (1.7-4.1) g/dL Albumin/Globulin Ratio 1.0 (1.0-2.8) Lipase (23-300) U/L Procalcitonin (<0.5) ng/mL Urine Color Zainab Urine Appearance Clear Urine pH 6.5 (4.5-8.0) Ur Specific [place] <=1.005 (1.000-1.035) Urine Protein Trace H (Negative) Urine Glucose (UA) Trace H (Negative) g/dL Urine Ketones Trace H (NEGATIVE) Urine Occult Blood 1+ H (Negative) Urine Nitrate Negative (Negative) Urine Bilirubin 1+ H (NEGATIVE) Ur Bilirubin Confirm Positive H (Negative) Urine Urobilinogen 0.2 (0.2) E.U./dL Ur Leukocyte Esterase Negative (NEGATIVE) Urine RBC 0-1/hpf (0-5/HPF) Urine WBC 0-1/hpf (0-5/HPF) Urine Bacteria None seen (None) Urine Mucus 1+ H (Negative) Ur Culture Indicated? Cult not indicated COVID-19 PCR (Negative) Imaging Data CT scan - abdomen/pelvis: Radiologist's Impression: [place] [address] CT Scan Report Signed Patient: Jace Mak#: [id number] : 6Acct:[id number] Age/Sex: 65 / MDate of Service: 05/24/20 Loc: ED Accession Number: [id number] Procedure: CT abdomen pelvis w con Ordering Provider: Laura Kumar MD PROCEDURE: CT ABDOMEN PELVIS W CON INDICATIONS: epigastric pain radiating to spine TECHNIQUE: After the administration of intravenous contrast, 5 mm thick sections acquired from the diaphragm to the symphysis. 5 mm coronal and sagittal reformats were acquired. For radiation dose reduction, the following was used: automated exposure control, adjustment of mA and/or kV according to patient size. COMPARISON: None. FINDINGS: Image quality: Excellent. ABDOMEN: Lung bases: Lung bases are abnormal with severe emphysematous change and lung scarring but no mass or pneumonia is seen. Heart size is normal. Solid organs: Liver is normal in size and enhancement. Gallbladder contains multiple moderate and large calculi, without evidence of definite acute cholecystitis or adjacent biliary obstruction.. Biliary system is non dilated. Pancreas enhances normally. Spleen is normal in size and enhancement. No adrenal nodules. Kidneys demonstrate normal size and enhancement, without hydronephrosis. Peritoneum and bowel: Bowel loops demonstrate normal wall thickness and caliber. No free fluid or air. There are several small gas bubbles that appear eccentric at the right anterolateral margin of the duodenal bulb, conceivably a manifestation of peptic ulcer disease. This is best seen on series 2 image 29. However, immediate adjacent prominent edema in the surrounding fat is not seen. There also is a finding of mild low attenuation with mild stranding in the fat adjacent to the pancreatic head best seen on series 2, image 37. Nodes and vessels: No retroperitoneal or mesenteric adenopathy by size criteria. Aorta and inferior vena cava are normal in size. Miscellaneous: No ventral hernias. PELVIS: Genitourinary: Bladder wall thickness is normal. Miscellaneous: No inguinal hernias or adenopathy. Bones: No suspicious bony lesions. No vertebral body compression fractures. IMPRESSION: There are 3 separate finding centered at the right upper quadrant as potential etiology for the symptomatology reported. These include moderate and large gallstones within the gallbladder lumen. Secondly, there are eccentric anterolateral duodenal bulb gas bubbles that conceivably could be within the wall of the duodenum rather than intraluminal. Peptic ulcer disease could produce that appearance. Finally, there is suspected mild pancreatitis at the pancreatic head causing slight adjacent fat stranding and low-attenuation at the pancreatic head without mass. Severe emphysematous change partially visualized at the lung bases. Dictated by: Cornelius Kumar M.D. on 05/25/2020 at 8:24 Approved by: Cornelius Kumar M.D. on 05/25/2020 at 8:35 MRCP: Radiologist's Impression: [address] [address] Magnetic Resonance Report Signed Patient: Jace Mak#: [id number] : 1955cct:[id number] Age/Sex: 65 / MDate of Service: 05/25/20 Loc: ED Accession Number: [id number] Procedure: MR abdomen wo con Ordering Provider: Laura Kumar MD PROCEDURE: MR ABDOMEN WO CON INDICATIONS: concern for common duct stone TECHNIQUE: Coronal HASTE through the abdomen, axial 2-D FLASH in- and [id number], and breath-hold T2 FSE with fat saturation through the biliary system and pancreas. Oblique coronal and axial thin-slice HASTE, radial thick-slab HASTE centered on the extrahepatic bile ducts. Intravenous secretin: Not requested. COMPARISON: [facility], CT, CT ABDOMEN PELVIS W CON, 05/24/2020, 22:23. FINDINGS: Image quality: Excellent. Pancreas and biliary system: Intra- and extra-hepatic biliary ducts are non dilated. Pancreas is normal in morphology but there is indistinct margination of the interlobular fat at the pancreatic head when compared to the pancreatic body and tail and there is a slight degree of adjacent adjacent soft tissue edema. Pancreatic duct is normal in caliber, without developmental anomalies. Gallbladder is abnormal in appearance containing multiple moderate and large stones as was seen by CT scanning, and there is mild edema at the gallbladder margin. A common duct stone is not seen. Accurate assessment for small calculus within the cystic duct is very limited. Other solid organs: Liver is normal in size. Spleen is normal in size. No adrenal nodules. Both kidneys are normal in size, without hydronephrosis. Nodes and vessels: No retroperitoneal or mesenteric adenopathy by size criteria. Aorta and inferior vena cava are normal in size. Bowel and peritoneum: Unenhanced bowel loops are normal in caliber. No free fluid. Lung bases: No basal pleural effusions. Heart size is normal. Bones and soft tissues: No ventral hernias. Bone marrow is of normal overall signal. IMPRESSION: Multiple moderate and large size gallstones within the gallbladder lumen. Mild pericholecystic fluid in the peritoneal fat. Mild edema it is contiguous also with the pancreatic head border where the interlobular fat is indistinct when compared to a normal appearance through the pancreatic body and tail. This may represent a mild or early degree of acute pancreatitis in that area. The prior CT scanning head raise concern for possible pectus ulcer disease at the right anterolateral duodenal bulb border. Edema in this area is not present, the appearance from the prior CT scanning is considered likely a manifestation of small gas bubbles trapped within folds of the duodenum. Overall, please correlate for presence or absence of pancreatitis by laboratory analysis. The common duct calculus is not present but may have passed if in fact acute pancreatitis is currently present. Surgical consultation is recommended regarding the multiple gallstones within the gallbladder lumen in this clinical circumstance. Dictated by: Cornelius Kumar M.D. on 05/25/2020 at 9:30 Approved by: Cornelius Kumar M.D. on 05/25/2020 at 9:40 Discharge Plan Departure Patient Disposition: Admitted As Inpatient Clinical Impression: Acute gallstone pancreatitis, Acute cholecystitis Discharge Date/Time: 05/25/20 11:16 Admit Date/Time: 05/25/20 10:23 Admit Provider: Jeannette Mathur
[2020-05-24 23:30] VITALS: BP 135/84; PULSE 104; RESP 20; O2SAT 92
[2020-05-24 23:44] LABS: C-Reactive Protein Quant 7.7 mg/dL (<1.0)
[2020-05-24] MEDS: PIPERACILLIN-TAZO 3.375 GM/50 ML FROZ.PIGGY IV (23:53)
[2020-05-24] MEDS: SODIUM CHLORIDE 0.9% 1,000 ML 1000 ML IV (23:54)
[2020-05-25] VITALS (30 sets, daily range): BP systolic 126–160; BP diastolic 73–96; PULSE 90–114; RESP 16–64; TEMP 36.6–37.2; O2SAT 91–100; BMI 25.4
[2020-05-25 00:28] LABS: Bacteria Urine None Seen
[2020-05-25 00:30] LABS: Appearance Urine UA CLEAR; Bilirubin Urine UA 1+ (NEGATIVE); Glucose Urine UA TRACE g/dL (Negative); Ketones Urine UA TRACE (NEGATIVE); Leukocyte Esterase Urine UA NEGATIVE (NEGATIVE); Nitrite Urine UA NEGATIVE (Negative); Occult Blood Urine UA 1+ (Negative); Protein Urine UA TRACE (Negative); Specific Gravity Urine UA <=1.005 (1.000-1.035); Urobilinogen Urine UA 0.2 E.U./dL (0.2); pH Urine UA 6.5 (4.5-8.0)
[2020-05-25 00:40] LABS: Color Urine UA Amber
[2020-05-25 00:45] LABS: Ictotest Urine Positive (Negative); RBC Urine 0-1/HPF (0-5/HPF); WBC Urine 0-1/HPF (0-5/HPF)
[2020-05-25 00:46] LABS: Culture Indicated Urine Cult Not Indicated; Mucus Urine 1+ (Negative)
[2020-05-25] MEDS: HYDROMORPHONE 0.5 MG INJ IV ×6 (01:19→21:57)
--- NOTE | 2020-05-25 01:25 | DI.MRI.S_ITS ---
PROCEDURE: MR ABDOMEN WO CON INDICATIONS: concern for common duct stone TECHNIQUE: Coronal HASTE through the abdomen, axial 2-D FLASH in- and [id number], and breath-hold T2 FSE with fat saturation through the biliary system and pancreas. Oblique coronal and axial thin-slice HASTE, radial thick-slab HASTE centered on the extrahepatic bile ducts. Intravenous secretin: Not requested. COMPARISON: [facility], CT, CT ABDOMEN PELVIS W CON, 05/24/2020, 22:23. FINDINGS: Image quality: Excellent. Pancreas and biliary system: Intra- and extra-hepatic biliary ducts are non dilated. Pancreas is normal in morphology but there is indistinct margination of the interlobular fat at the pancreatic head when compared to the pancreatic body and tail and there is a slight degree of adjacent adjacent soft tissue edema. Pancreatic duct is normal in caliber, without developmental anomalies. Gallbladder is abnormal in appearance containing multiple moderate and large stones as was seen by CT scanning, and there is mild edema at the gallbladder margin. A common duct stone is not seen. Accurate assessment for small calculus within the cystic duct is very limited. Other solid organs: Liver is normal in size. Spleen is normal in size. No adrenal nodules. Both kidneys are normal in size, without hydronephrosis. Nodes and vessels: No retroperitoneal or mesenteric adenopathy by size criteria. Aorta and inferior vena cava are normal in size. Bowel and peritoneum: Unenhanced bowel loops are normal in caliber. No free fluid. Lung bases: No basal pleural effusions. Heart size is normal. Bones and soft tissues: No ventral hernias. Bone marrow is of normal overall signal. IMPRESSION: Multiple moderate and large size gallstones within the gallbladder lumen. Mild pericholecystic fluid in the peritoneal fat. Mild edema it is contiguous also with the pancreatic head border where the interlobular fat is indistinct when compared to a normal appearance through the pancreatic body and tail. This may represent a mild or early degree of acute pancreatitis in that area. The prior CT scanning head raise concern for possible pectus ulcer disease at the right anterolateral duodenal bulb border. Edema in this area is not present, the appearance from the prior CT scanning is considered likely a manifestation of small gas bubbles trapped within folds of the duodenum. Overall, please correlate for presence or absence of pancreatitis by laboratory analysis. The common duct calculus is not present but may have passed if in fact acute pancreatitis is currently present. Surgical consultation is recommended regarding the multiple gallstones within the gallbladder lumen in this clinical circumstance. Dictated by: Cornelius Kumar M.D. on 05/25/2020 at 9:30 Approved by: Cornelius Kumar M.D. on 05/25/2020 at 9:40
[2020-05-25 05:56] LABS: Add Manual Diff / Slide Review NO; Basophils Absolute Auto 100 /uL (0-100); Basophils Percent Auto 0.5 % (0-2); Eosinophils Absolute Auto 200 /uL (0-450); Eosinophils Percent Auto 1.1 % (2-4); Hematocrit 40.3 % (41-53); Hemoglobin 13.5 g/dL (13.5-17.5); Lymphocytes Absolute Auto 1100 /uL (1100-4500); Lymphocytes Percent Auto 7.1 % (25-40); Mean Corpuscular HGB Conc 33.5 % (30-36); Mean Corpuscular Hemoglobin 30.2 PG (26-34); Mean Corpuscular Volume 90.1 fL (80-100); Monocytes Absolute Auto 2000 /uL (0-900); Monocytes Percent Auto 12.7 % (3-14); Neutrophils Absolute Auto 12200 /uL (1500-7000); Neutrophils Percent Auto 78.6 % (50-75); Platelet Count 284 X10^3/uL (150-400); Red Blood Cell Count 4.47 X10^6/uL (4.5-5.9); Red Cell Distribution Width 13.8 % (11.6-14.8); White Blood Cell Count 15.5 X10^3/uL (4.5-11.0)
[2020-05-25 06:10] LABS: Alanine Aminotransferase 173 IU/L (<50); Albumin 3.9 g/dL (3.5-5.0); Alkaline Phosphatase 278 U/L (38-126); Aspartate Aminotransferase 50 IU/L (17-59); BUN Creatinine Ratio 10.9 (6-22); Bilirubin Total 2.9 mg/dL (0.2-1.3); Blood Urea Nitrogen 10 mg/dL (9-20); Calcium 8.6 mg/dL (8.4-10.2); Carbon Dioxide 31 mmol/L (22-32); Chloride 94 mmol/L (98-107); Estimated Glomerular Filt Rate > 60.0 mL/min (>60); Glucose 121 mg/dL (80-110); HEMOLYSIS < 15 (0-50); Potassium 3.6 mmol/L (3.4-5.1); Sodium 130 mmol/L (137-145); Total Protein 7.9 g/dL (6.3-8.2)
[2020-05-25] MEDS: PIPERACILLIN-TAZO 3.375 GM/50 ML FROZ.PIGGY IV ×3 (07:35→19:30)
[2020-05-25] MEDS: LACTATED RINGERS 1,000 ML 150 ML IV ×2 (10:41→17:47)
[2020-05-25] MEDS: PANTOPRAZOLE 40 MG VIAL IV ×2 (14:34→21:54)
--- NOTE | 2020-05-25 14:47 | PC.ADMIT ---
[address] Admission Note: The patient,Jace Mak,65 y/o, was given written information regarding hospital policies, unit procedures and contact persons. Patient's smoking status: Former smoker. Vital Signs - 8 hr 05/25/20 07:00 05/25/20 07:30 05/25/20 07:44 Temperature 99.0 F Pulse Rate 106 H 106 H Respiratory Rate 28 H 64 H Blood Pressure 160/96 H 159/79 H Pulse Oximetry 94 95 05/25/20 08:00 05/25/20 08:24 05/25/20 09:57 Temperature Pulse Rate 103 H 109 H Respiratory Rate 17 Blood Pressure 135/76 143/88 H Pulse Oximetry 93 05/25/20 09:58 05/25/20 10:00 05/25/20 10:30 Temperature Pulse Rate 105 H 105 H 107 H Respiratory Rate Blood Pressure 132/82 Pulse Oximetry 92 94 95 05/25/20 10:31 05/25/20 11:00 05/25/20 12:36 Temperature 98.6 F Pulse Rate 108 H 102 H 114 H Respiratory Rate 20 Blood Pressure 142/89 H 146/74 H 145/84 H Pulse Oximetry 93 93 100 Rec'd pt from ED to rm 228 at 1115. Pt AO x4 and making needs known with clear speech. Admission assessment completed. at bedside with pt. Oriented to room, environment, pain scale, fall risk, use of call light. Instructed to wait for assistance before getting OOB. Pt ambulated with SBA to BR to void. Declines PRN rx for pain at this time. Will monitor.
[2020-05-25 17:15] LABS: Add Manual Diff / Slide Review NO; Basophils Absolute Auto 100 /uL (0-100); Basophils Percent Auto 0.5 % (0-2); Eosinophils Absolute Auto 200 /uL (0-450); Eosinophils Percent Auto 1.6 % (2-4); Hematocrit 39.3 % (41-53); Hemoglobin 13.2 g/dL (13.5-17.5); Lymphocytes Absolute Auto 1100 /uL (1100-4500); Lymphocytes Percent Auto 8.2 % (25-40); Mean Corpuscular HGB Conc 33.7 % (30-36); Mean Corpuscular Volume 89.1 fL (80-100); Monocytes Absolute Auto 1800 /uL (0-900); Monocytes Percent Auto 12.6 % (3-14); Neutrophils Absolute Auto 10700 /uL (1500-7000); Neutrophils Percent Auto 77.1 % (50-75); Platelet Count 273 X10^3/uL (150-400); Red Blood Cell Count 4.41 X10^6/uL (4.5-5.9); Red Cell Distribution Width 13.6 % (11.6-14.8); White Blood Cell Count 13.9 X10^3/uL (4.5-11.0)
[2020-05-25 17:31] LABS: Alanine Aminotransferase 152 IU/L (<50); Albumin 3.8 g/dL (3.5-5.0); Alkaline Phosphatase 252 U/L (38-126); Aspartate Aminotransferase 51 IU/L (17-59); BUN Creatinine Ratio 12.8 (6-22); Bilirubin Total 2.8 mg/dL (0.2-1.3); Blood Urea Nitrogen 11 mg/dL (9-20); Calcium 8.7 mg/dL (8.4-10.2); Carbon Dioxide 30 mmol/L (22-32); Chloride 95 mmol/L (98-107); Estimated Glomerular Filt Rate > 60.0 mL/min (>60); Globulin 3.8 g/dL (1.7-4.1); Glucose 106 mg/dL (80-110); HEMOLYSIS < 15 (0-50); Lipase 112 U/L (23-300); Magnesium 1.6 mg/dL (1.6-2.3); Phosphorous 2.8 mg/dL (2.3-3.7); Potassium 3.5 mmol/L (3.4-5.1); Sodium 130 mmol/L (137-145); Total Protein 7.6 g/dL (6.3-8.2)
[2020-05-25 17:32] LABS: Lactate (Lactic Acid) 1.2 mmol/L (0.7-2.1)
--- NOTE | 2020-05-25 17:46 | PM.HP.1 ---
History of Present Illness History of Present Illness Date Patient Seen: 05/25/20 Time Patient Seen: 18:54 Chief complaint: sharp pain in back Narrative: This is a 65 yo man with h/o ankylosing spondylitis currently on Enbrel and daily Motrin, restless leg syndrome, who presented to the ER today with severe epigastric and midthoracic back pain that is been present since Saturday and seems to be getting worse. He says that he has had a disturbing pain in his abdomen for about 1 year. He says it is worse with eating anything spicy or acidic. He describes the pain is epigastric, and traveling in a band underneath his ribs on the right and left sides. He does not notice any worsening pain with eating foods that her fatty or greasy. He takes NSAIDs daily for his arthritis. He says he had an upper endoscopy about 3 years ago, and was put on omeprazole about 1 year ago by a doctor at the [facility]. He takes omeprazole 20 mg once daily. He denies any constipation, diarrhea, nausea, vomiting, fevers. He says he has never had a colonoscopy. In the ER he had a CT scan and labs. The skin T scan showed large gallstones, some gas bubbles in the duodenum which may be actually pneumatosis in the wall of the duodenum, and pancreatitis at the pancreatic head with surrounding fat stranding. Severe emphysematous changes were seen at the lung bases. Labs revealed elevated white blood cell count, elevated bilirubin at 3.0, elevated lipase at 303, elevated alk-phos at 343. He had an MRCP due to the elevated bilirubin, which revealed pancreatitis, gallstones, possible gas bubbles trapped within the duodenum, rather than in the duodenal wall, and no obvious obstruction of the common bile duct. The patient was admitted to the floor, and started on IV antibiotics, clear liquid diet, and IV fluids. He is getting pain meds and antiemetics as needed. He denies having any nausea. He feels that his abdomen is getting more distended and a little bit more hard. He still having a similar pain to what he was having, but is is controlled with pain meds. ROS: Reports no black stools, no chills no fevers no dizziness but he states the pain is severe enough that he can not get comfortable. It is worse with movement but not with deep breathing. He reports no cough, fevers, chills, wheeze, lower extremity edema or orthopnea. Denies dysuria, chest pain, shortness of breath. Reports a history of spontaneous pneumothoraces, which have not recurred since pleurodesis. He denies any residual symptoms such as shortness of breath. Thirteen system review is otherwise negative other than as mentioned below and in HPI. PE: GENERAL: Well groomed and cooperative. Appears stated age. Answers questions promptly and appropriately. Vital signs noted. HENT: Normocephalic, atraumatic. Hearing intact. EYES: Conjunctiva pink, sclera white, no periorbital swelling. CARDIOVASCULAR: Regular rate. No pedal edema. Chest: Well-healed scar from right-sided pleurodesis done greater than 10 years ago RESPIRATORY: Non-tachypneic, breathing comfortably on room air. GASTROINTESTINAL: Abdomen soft, distended, mildly tender to palpation in the epigastrium and bilateral upper quadrant, slightly greater on the right than the left GENITALURINARY: No left flank tenderness, some mild right flank tenderness MUSCULOSKELETAL: Equal tone and mass bilaterally. SKIN: Warm, dry, soft, appropriate color for ethnicity. No other lesions, rashes, or wounds. NEURO: Alert and Oriented X 3. No gross sensory deficits, or cognitive issues. PSYCH: Appropriate affect and mood. Patient History Medical History Ankylosing spondylitis (Acute) Restless leg syndrome (Acute) Spontaneous pneumothorax (Acute) Family & Social History Social History: household members spouse Prior Living Arrangements Mobile home Safety & Behavioral: Feels Safe in Current Yes Environment Been Physically Hurt or No Threatened By a Person Suicidal Ideation Description None Suicide Plan Description No Plan Tobacco & Substance use: Tobacco type cigarettes Smoking Status Former smoker Smoking packs per day 0.5 alcohol intake frequency holiday/special occasion Substance Use Type does not use Meds Home Medications and Allergies Home Medications Medication Instructions Recorded Confirmed Type cholecalciferol (vitamin D3) 25 mcg PO DAILY 05/25/20 05/25/20 History etanercept 50 mg SUBCUT WEEKLY 05/25/20 05/25/20 History ferrous sulfate 325 mg PO TID 05/25/20 05/25/20 History gabapentin 300 mg PO BID 05/25/20 05/25/20 History ibuprofen 600 mg PO Q6H PRN 05/25/20 05/25/20 History pramipexole 1 mg PO BID 05/25/20 05/25/20 History Allergies Allergy/AdvReac Type Severity Reaction Status Date / Time No Known Drug Allergies Allergy Verified 01/22/18 19:42 Exam Vital Signs (past 8 hours): - 05/25/20 09:57 05/25/20 09:58 05/25/20 10:00 Temperature Pulse Rate 105 H 105 H Respiratory Rate Blood Pressure 143/88 H 132/82 Pulse Oximetry 92 94 05/25/20 10:30 05/25/20 10:31 05/25/20 11:00 Temperature Pulse Rate 107 H 108 H 102 H Respiratory Rate Blood Pressure 142/89 H 146/74 H Pulse Oximetry 95 93 93 05/25/20 12:36 05/25/20 15:43 Temperature 98.6 F 97.9 F Pulse Rate 114 H 91 H Respiratory Rate 20 18 Blood Pressure 145/84 H 137/75 Pulse Oximetry 100 93 Oxygen Delivery Method Room Air Oxygen Flow Rate 0 Objective Imaging MRI - abdomen: Radiologist's impression: PROCEDURE: CT ABDOMEN PELVIS W CON INDICATIONS: epigastric pain radiating to spine TECHNIQUE: After the administration of intravenous contrast, 5 mm thick sections acquired from the diaphragm to the symphysis. 5 mm coronal and sagittal reformats were acquired. For radiation dose reduction, the following was used: automated exposure control, adjustment of mA and/or kV according to patient size. COMPARISON: None. FINDINGS: Image quality: Excellent. ABDOMEN: Lung bases: Lung bases are abnormal with severe emphysematous change and lung scarring but no mass or pneumonia is seen. Heart size is normal. Solid organs: Liver is normal in size and enhancement. Gallbladder contains multiple moderate and large calculi, without evidence of definite acute cholecystitis or adjacent biliary obstruction.. Biliary system is non dilated. Pancreas enhances normally. Spleen is normal in size and enhancement. No adrenal nodules. Kidneys demonstrate normal size and enhancement, without hydronephrosis. Peritoneum and bowel: Bowel loops demonstrate normal wall thickness and caliber. No free fluid or air. There are several small gas bubbles that appear eccentric at the right anterolateral margin of the duodenal bulb, conceivably a manifestation of peptic ulcer disease. This is best seen on series 2 image 29. However, immediate adjacent prominent edema in the surrounding fat is not seen. There also is a finding of mild low attenuation with mild stranding in the fat adjacent to the pancreatic head best seen on series 2, image 37. Nodes and vessels: No retroperitoneal or mesenteric adenopathy by size criteria. Aorta and inferior vena cava are normal in size. Miscellaneous: No ventral hernias. PELVIS: Genitourinary: Bladder wall thickness is normal. Miscellaneous: No inguinal hernias or adenopathy. Bones: No suspicious bony lesions. No vertebral body compression fractures. IMPRESSION: There are 3 separate finding centered at the right upper quadrant as potential etiology for the symptomatology reported. These include moderate and large gallstones within the gallbladder lumen. Secondly, there are eccentric anterolateral duodenal bulb gas bubbles that conceivably could be within the wall of the duodenum rather than intraluminal. Peptic ulcer disease could produce that appearance. Finally, there is suspected mild pancreatitis at the pancreatic head causing slight adjacent fat stranding and low-attenuation at the pancreatic head without mass. Severe emphysematous change partially visualized at the lung bases. Dictated by: Cornelius Kumar M.D. on 05/25/2020 at 8:24 Approved by: Cornelius Kumar M.D. on 05/25/2020 at 8:35 MRCP: Radiologist's Impression: [place] [address] Magnetic Resonance Report Signed Patient: Jace Mak#: [id number] : 6Acct:[id number] Age/Sex: 65 / MDate of Service: 05/25/20 Loc: ED Accession Number: [id number] Procedure: MR abdomen wo con Ordering Provider: Laura Kumar MD PROCEDURE: MR ABDOMEN WO CON INDICATIONS: concern for common duct stone TECHNIQUE: Coronal HASTE through the abdomen, axial 2-D FLASH in- and [id number], and breath-hold T2 FSE with fat saturation through the biliary system and pancreas. Oblique coronal and axial thin-slice HASTE, radial thick-slab HASTE centered on the extrahepatic bile ducts. Intravenous secretin: Not requested. COMPARISON: [facility], CT, CT ABDOMEN PELVIS W CON, 05/24/2020, 22:23. FINDINGS: Image quality: Excellent. Pancreas and biliary system: Intra- and extra-hepatic biliary ducts are non dilated. Pancreas is normal in morphology but there is indistinct margination of the interlobular fat at the pancreatic head when compared to the pancreatic body and tail and there is a slight degree of adjacent adjacent soft tissue edema. Pancreatic duct is normal in caliber, without developmental anomalies. Gallbladder is abnormal in appearance containing multiple moderate and large stones as was seen by CT scanning, and there is mild edema at the gallbladder margin. A common duct stone is not seen. Accurate assessment for small calculus within the cystic duct is very limited. Other solid organs: Liver is normal in size. Spleen is normal in size. No adrenal nodules. Both kidneys are normal in size, without hydronephrosis. Nodes and vessels: No retroperitoneal or mesenteric adenopathy by size criteria. Aorta and inferior vena cava are normal in size. Bowel and peritoneum: Unenhanced bowel loops are normal in caliber. No free fluid. Lung bases: No basal pleural effusions. Heart size is normal. Bones and soft tissues: No ventral hernias. Bone marrow is of normal overall signal. IMPRESSION: Multiple moderate and large size gallstones within the gallbladder lumen. Mild pericholecystic fluid in the peritoneal fat. Mild edema it is contiguous also with the pancreatic head border where the interlobular fat is indistinct when compared to a normal appearance through the pancreatic body and tail. This may represent a mild or early degree of acute pancreatitis in that area. The prior CT scanning head raise concern for possible pectus ulcer disease at the right anterolateral duodenal bulb border. Edema in this area is not present, the appearance from the prior CT scanning is considered likely a manifestation of small gas bubbles trapped within folds of the duodenum. Overall, please correlate for presence or absence of pancreatitis by laboratory analysis. The common duct calculus is not present but may have passed if in fact acute pancreatitis is currently present. Surgical consultation is recommended regarding the multiple gallstones within the gallbladder lumen in this clinical circumstance. Dictated by: Cornelius Kumar M.D. on 05/25/2020 at 9:30 Approved by: Cornelius Kumar M.D. on 05/25/2020 at 9:40 Labs Result Diagrams: 05/25/20 17:08 05/25/20 17:08 Labs: Laboratory Results - last 24 hr 05/24/20 05/24/20 05/24/20 21:40 21:40 21:40 WBC 14.8 H RBC 5.05 Hgb 15.4 Hct 45.3 MCV 89.7 MCH 30.5 MCHC 34.0 RDW 13.6 Plt Count 288 Neut % (Auto) 81.4 H Lymph % (Auto) 6.0 L [place] % (Auto) 11.7 Eos % (Auto) 0.6 L Baso % (Auto) 0.3 Neut # (Auto) 18045 H Lymph # (Auto) 900 L [place] # (Auto) 1700 H Eos # (Auto) 100 Baso # (Auto) 0 Sodium 131 L Potassium 3.6 Chloride 95 L Carbon Dioxide 28 BUN 9 Creatinine 0.72 Estimated GFR > 60.0 BUN/Creatinine Ratio 12.5 Glucose 124 H Lactate Calcium 9.4 Phosphorus Magnesium 1.7 Total Bilirubin 3.0 H AST 63 H ALT 242 H Alkaline Phosphatase 343 H Troponin I < 0.012 C-Reactive Protein 7.7 H Total Protein 8.8 H Albumin 4.4 Globulin 4.4 H Albumin/Globulin Ratio 1.0 Lipase 303 H Procalcitonin Urine Color Urine Appearance Urine pH Ur Specific [place] Urine Protein Urine Glucose (UA) Urine Ketones Urine Occult Blood Urine Nitrate Urine Bilirubin Ur Bilirubin Confirm Urine Urobilinogen Ur Leukocyte Esterase Urine RBC Urine WBC Urine Bacteria Urine Mucus Ur Culture Indicated? Nasal Screen MRSA (PCR) COVID-19 PCR 05/24/20 05/24/20 05/24/20 21:40 21:40 21:40 WBC RBC Hgb Hct MCV MCH MCHC RDW Plt Count Neut % (Auto) Lymph % (Auto) [place] % (Auto) Eos % (Auto) Baso % (Auto) Neut # (Auto) Lymph # (Auto) [place] # (Auto) Eos # (Auto) Baso # (Auto) Sodium Potassium Chloride Carbon Dioxide BUN Creatinine Estimated GFR BUN/Creatinine Ratio Glucose Lactate 1.3 Calcium Phosphorus Magnesium Total Bilirubin AST ALT Alkaline Phosphatase Troponin I C-Reactive Protein Total Protein Albumin Globulin Albumin/Globulin Ratio Lipase Procalcitonin 0.19 Urine Color Urine Appearance Urine pH Ur Specific [place] Urine Protein Urine Glucose (UA) Urine Ketones Urine Occult Blood Urine Nitrate Urine Bilirubin Ur Bilirubin Confirm Urine Urobilinogen Ur Leukocyte Esterase Urine RBC Urine WBC Urine Bacteria Urine Mucus Ur Culture Indicated? Nasal Screen MRSA (PCR) COVID-19 PCR Negative 05/25/20 05/25/20 05/25/20 00:20 05:45 05:45 WBC 15.5 H RBC 4.47 L Hgb 13.5 Hct 40.3 L MCV 90.1 MCH 30.2 MCHC 33.5 RDW 13.8 Plt Count 284 Neut % (Auto) 78.6 H Lymph % (Auto) 7.1 L [place] % (Auto) 12.7 Eos % (Auto) 1.1 L Baso % (Auto) 0.5 Neut # (Auto) 97054 H Lymph # (Auto) 1100 [place] # (Auto) 2000 H Eos # (Auto) 200 Baso # (Auto) 100 Sodium 130 L Potassium 3.6 Chloride 94 L Carbon Dioxide 31 BUN 10 Creatinine 0.92 Estimated GFR > 60.0 BUN/Creatinine Ratio 10.9 Glucose 121 H Lactate Calcium 8.6 Phosphorus Magnesium Total Bilirubin 2.9 H AST 50 ALT 173 H Alkaline Phosphatase 278 H Troponin I C-Reactive Protein Total Protein 7.9 Albumin 3.9 Globulin 4.0 Albumin/Globulin Ratio 1.0 Lipase Procalcitonin Urine Color [place] Urine Appearance Clear Urine pH 6.5 Ur Specific [place] <=1.005 Urine Protein Trace H Urine Glucose (UA) Trace H Urine Ketones Trace H Urine Occult Blood 1+ H Urine Nitrate Negative Urine Bilirubin 1+ H Ur Bilirubin Confirm Positive H Urine Urobilinogen 0.2 Ur Leukocyte Esterase Negative Urine RBC 0-1/hpf Urine WBC 0-1/hpf Urine Bacteria None seen Urine Mucus 1+ H Ur Culture Indicated? Cult not indicated Nasal Screen MRSA (PCR) COVID-19 PCR 05/25/20 05/25/20 05/25/20 12:00 17:08 17:08 WBC 13.9 H RBC 4.41 L Hgb 13.2 L Hct 39.3 L MCV 89.1 MCH 30.0 MCHC 33.7 RDW 13.6 Plt Count 273 Neut % (Auto) 77.1 H Lymph % (Auto) 8.2 L [place] % (Auto) 12.6 Eos % (Auto) 1.6 L Baso % (Auto) 0.5 Neut # (Auto) 46277 H Lymph # (Auto) 1100 [place] # (Auto) 1800 H Eos # (Auto) 200 Baso # (Auto) 100 Sodium Potassium Chloride Carbon Dioxide BUN Creatinine Estimated GFR BUN/Creatinine Ratio Glucose Lactate 1.2 Calcium Phosphorus Magnesium Total Bilirubin AST ALT Alkaline Phosphatase Troponin I C-Reactive Protein Total Protein Albumin Globulin Albumin/Globulin Ratio Lipase Procalcitonin Urine Color Urine Appearance Urine pH Ur Specific [place] Urine Protein Urine Glucose (UA) Urine Ketones Urine Occult Blood Urine Nitrate Urine Bilirubin Ur Bilirubin Confirm Urine Urobilinogen Ur Leukocyte Esterase Urine RBC Urine WBC Urine Bacteria Urine Mucus Ur Culture Indicated? Nasal Screen MRSA (PCR) Negative for mrsa COVID-19 PCR 05/25/20 05/25/20 17:08 17:08 WBC RBC Hgb Hct MCV MCH MCHC RDW Plt Count Neut % (Auto) Lymph % (Auto) [place] % (Auto) Eos % (Auto) Baso % (Auto) Neut # (Auto) Lymph # (Auto) [place] # (Auto) Eos # (Auto) Baso # (Auto) Sodium 130 L Potassium 3.5 Chloride 95 L Carbon Dioxide 30 BUN 11 Creatinine 0.86 Estimated GFR > 60.0 BUN/Creatinine Ratio 12.8 Glucose 106 Lactate Calcium 8.7 Phosphorus 2.8 Magnesium 1.6 Total Bilirubin 2.8 H AST 51 ALT 152 H Alkaline Phosphatase 252 H Troponin I C-Reactive Protein Total Protein 7.6 Albumin 3.8 Globulin 3.8 Albumin/Globulin Ratio 1.0 Lipase 112 D Procalcitonin Urine Color Urine Appearance Urine pH Ur Specific [place] Urine Protein Urine Glucose (UA) Urine Ketones Urine Occult Blood Urine Nitrate Urine Bilirubin Ur Bilirubin Confirm Urine Urobilinogen Ur Leukocyte Esterase Urine RBC Urine WBC Urine Bacteria Urine Mucus Ur Culture Indicated? Nasal Screen MRSA (PCR) COVID-19 PCR Assessment & Plan Assessment and plan (1) Acute gallstone pancreatitis: Status: Acute (2) Acute cholecystitis: Status: Acute (3) Ankylosing spondylitis: Problem details: On Enbrel Status: Acute (4) Restless leg syndrome: Status: Acute (5) Peptic ulcer disease: Status: Acute Assessment & Plan narrative: This is a 65-year-old man with history of ankylosing spondylitis, daily NSAID use, 1 year of epigastric pain, with acute onset of worsening epigastric pain, found to have acute gallstone pancreatitis and cholecystitis, some possible pneumatosis in the duodenum, who was admitted for treatment of the same. Had a long discussion with the patient this evening, and I reyna pictures for him showing him with going on in his gallbladder, common bile duct, pancreas, and duodenum. Explained to him that although we probably need to take out his gallbladder, it is better to do it when he is not in the middle of an attack of pancreatitis. So for now we will treat his pancreatitis with bowel rest, we will treat this cholecystitis with IV antibiotics, we will treat his duodenal pneumatosis with high-dose Protonix. Plan: IV fluid P.o. clears as tolerated IV antibiotics P.o. and IV pain meds as needed Home meds as appropriate Ambulate as tolerated DVT prophylaxis tonight Will decide about OR tomorrow once his labs are back so long as it appears his pancreatitis is resolving COVID-19 COVID-19 status: Negative Result date/Date tested (Pos, Neg/Pending): 05/25/20 Time Spent With Patient Time with patient: Greater than 35 minutes
[2020-05-25 17:55] LABS: Procalcitonin 0.34 ng/mL (<0.5)
[2020-05-25] MEDS: GABAPENTIN 300 MG CAPSULE PO (21:53)
[2020-05-25] MEDS: DOCUSATE 100 MG CAPSULE PO (21:53)
[2020-05-25] MEDS: HEPARIN 5,000 UNIT/ML VIAL 5000 UNIT SUBCUT (21:54)
[2020-05-25] MEDS: PRAMIPEXOLE 1 MG TABLET PO (21:54)
[2020-05-26] MEDS: PIPERACILLIN-TAZO 3.375 GM/50 ML FROZ.PIGGY IV ×5 (00:40→23:56)
[2020-05-26] MEDS: LACTATED RINGERS 1,000 ML 150 ML IV (00:41)
[2020-05-26 00:43] VITALS: BP 125/62; PULSE 103; RESP 20; TEMP 37; O2SAT 92
[2020-05-26] MEDS: HYDROMORPHONE 0.5 MG INJ IV ×4 (00:48→21:10)
[2020-05-26 04:49] VITALS: BP 116/69; PULSE 97; RESP 20; TEMP 36; O2SAT 92
[2020-05-26 05:02] LABS: Add Manual Diff / Slide Review NO; Basophils Absolute Auto 100 /uL (0-100); Basophils Percent Auto 0.8 % (0-2); Eosinophils Absolute Auto 400 /uL (0-450); Eosinophils Percent Auto 3.8 % (2-4); Hematocrit 35.5 % (41-53); Hemoglobin 12.2 g/dL (13.5-17.5); Lymphocytes Absolute Auto 1100 /uL (1100-4500); Lymphocytes Percent Auto 11.3 % (25-40); Mean Corpuscular HGB Conc 34.2 % (30-36); Mean Corpuscular Hemoglobin 30.7 PG (26-34); Mean Corpuscular Volume 89.8 fL (80-100); Monocytes Absolute Auto 1200 /uL (0-900); Monocytes Percent Auto 12.5 % (3-14); Neutrophils Absolute Auto 7000 /uL (1500-7000); Neutrophils Percent Auto 71.6 % (50-75); Platelet Count 255 X10^3/uL (150-400); Red Blood Cell Count 3.95 X10^6/uL (4.5-5.9); Red Cell Distribution Width 13.5 % (11.6-14.8); White Blood Cell Count 9.7 X10^3/uL (4.5-11.0)
[2020-05-26 05:14] LABS: Lipase 79 U/L (23-300); Magnesium 1.7 mg/dL (1.6-2.3); Phosphorous 2.7 mg/dL (2.3-3.7)
[2020-05-26 05:26] LABS: Alanine Aminotransferase 122 IU/L (<50); Albumin 3.4 g/dL (3.5-5.0); Alkaline Phosphatase 205 U/L (38-126); Aspartate Aminotransferase 49 IU/L (17-59); Bilirubin Total 2.4 mg/dL (0.2-1.3); Blood Urea Nitrogen 11 mg/dL (9-20); Calcium 8.5 mg/dL (8.4-10.2); Carbon Dioxide 34 mmol/L (22-32); Chloride 94 mmol/L (98-107); Estimated Glomerular Filt Rate > 60.0 mL/min (>60); Globulin 3.5 g/dL (1.7-4.1); Glucose 99 mg/dL (80-110); HEMOLYSIS < 15 (0-50); Potassium 3.5 mmol/L (3.4-5.1); Sodium 129 mmol/L (137-145); Total Protein 6.9 g/dL (6.3-8.2)
--- NOTE | 2020-05-26 07:15 | P.PN_ITS ---
Subjective Subjective Date Patient Seen: 05/26/20 Time Patient Seen: 08:30 Interval history: No acute events overnight. Pt feeling less pain, but still RUQ and epigastric tenderness. Exam Vital Signs (past 8 hours): - 05/26/20 00:43 05/26/20 04:49 Temperature 98.6 F 96.8 F L Pulse Rate 103 H 97 H Respiratory Rate 20 20 Blood Pressure 125/62 116/69 Pulse Oximetry 92 92 Oxygen Delivery Method Room Air Oxygen Flow Rate 0 Narrative Exam Narrative: PE: GENERAL: Well groomed and cooperative. Appears stated age. Answers questions promptly and appropriately. Vital signs noted. HENT: Normocephalic, atraumatic. Hearing intact. EYES: Conjunctiva pink, sclera white, no periorbital swelling. CARDIOVASCULAR: Regular rate. No pedal edema. Chest: Well-healed scar from right-sided pleurodesis done greater than 10 years ago RESPIRATORY: Non-tachypneic, breathing comfortably on room air. GASTROINTESTINAL: Abdomen soft, distended, mildly tender to palpation in the epigastrium and bilateral upper quadrant, slightly greater on the right than the left GENITALURINARY: No left flank tenderness, some mild right flank tenderness MUSCULOSKELETAL: Equal tone and mass bilaterally. SKIN: Warm, dry, soft, appropriate color for ethnicity. No other lesions, rashes, or wounds. NEURO: Alert and Oriented X 3. No gross sensory deficits, or cognitive issues. PSYCH: Appropriate affect and mood. Objective Labs Result Diagrams: 05/26/20 04:45 05/26/20 04:45 Labs: Laboratory Results - last 24 hr 05/25/20 05/25/20 05/25/20 12:00 17:08 17:08 WBC 13.9 H RBC 4.41 L Hgb 13.2 L Hct 39.3 L MCV 89.1 MCH 30.0 MCHC 33.7 RDW 13.6 Plt Count 273 Neut % (Auto) 77.1 H Lymph % (Auto) 8.2 L [place] % (Auto) 12.6 Eos % (Auto) 1.6 L Baso % (Auto) 0.5 Neut # (Auto) 53041 H Lymph # (Auto) 1100 [place] # (Auto) 1800 H Eos # (Auto) 200 Baso # (Auto) 100 Sodium Potassium Chloride Carbon Dioxide BUN Creatinine Estimated GFR BUN/Creatinine Ratio Glucose Lactate 1.2 Calcium Phosphorus Magnesium Total Bilirubin AST ALT Alkaline Phosphatase Total Protein Albumin Globulin Albumin/Globulin Ratio Lipase Procalcitonin Nasal Screen MRSA (PCR) Negative for mrsa 05/25/20 05/25/20 05/25/20 17:08 17:08 17:08 WBC RBC Hgb Hct MCV MCH MCHC RDW Plt Count Neut % (Auto) Lymph % (Auto) [place] % (Auto) Eos % (Auto) Baso % (Auto) Neut # (Auto) Lymph # (Auto) [place] # (Auto) Eos # (Auto) Baso # (Auto) Sodium 130 L Potassium 3.5 Chloride 95 L Carbon Dioxide 30 BUN 11 Creatinine 0.86 Estimated GFR > 60.0 BUN/Creatinine Ratio 12.8 Glucose 106 Lactate Calcium 8.7 Phosphorus 2.8 Magnesium 1.6 Total Bilirubin 2.8 H AST 51 ALT 152 H Alkaline Phosphatase 252 H Total Protein 7.6 Albumin 3.8 Globulin 3.8 Albumin/Globulin Ratio 1.0 Lipase 112 D Procalcitonin 0.34 Nasal Screen MRSA (PCR) 05/26/20 05/26/20 05/26/20 04:45 04:45 04:45 WBC 9.7 RBC 3.95 L Hgb 12.2 L Hct 35.5 L MCV 89.8 MCH 30.7 MCHC 34.2 RDW 13.5 Plt Count 255 Neut % (Auto) 71.6 Lymph % (Auto) 11.3 L [place] % (Auto) 12.5 Eos % (Auto) 3.8 Baso % (Auto) 0.8 Neut # (Auto) 7000 Lymph # (Auto) 1100 [place] # (Auto) 1200 H Eos # (Auto) 400 Baso # (Auto) 100 Sodium 129 L Potassium 3.5 Chloride 94 L Carbon Dioxide 34 H BUN 11 Creatinine 1.00 Estimated GFR > 60.0 BUN/Creatinine Ratio 11.0 Glucose 99 Lactate Calcium 8.5 Phosphorus 2.7 Magnesium 1.7 Total Bilirubin 2.4 H AST 49 ALT 122 H Alkaline Phosphatase 205 H Total Protein 6.9 Albumin 3.4 L Globulin 3.5 Albumin/Globulin Ratio 1.0 Lipase Procalcitonin Nasal Screen MRSA (PCR) 05/26/20 04:45 WBC RBC Hgb Hct MCV MCH MCHC RDW Plt Count Neut % (Auto) Lymph % (Auto) [place] % (Auto) Eos % (Auto) Baso % (Auto) Neut # (Auto) Lymph # (Auto) [place] # (Auto) Eos # (Auto) Baso # (Auto) Sodium Potassium Chloride Carbon Dioxide BUN Creatinine Estimated GFR BUN/Creatinine Ratio Glucose Lactate Calcium Phosphorus Magnesium Total Bilirubin AST ALT Alkaline Phosphatase Total Protein Albumin Globulin Albumin/Globulin Ratio Lipase 79 Procalcitonin Nasal Screen MRSA (PCR) Assessment & Plan Assessment and plan (1) Acute gallstone pancreatitis: Status: Acute (2) Acute cholecystitis: Status: Acute (3) Ankylosing spondylitis: Problem details: On Enbrel Status: Acute (4) Restless leg syndrome: Status: Acute (5) Peptic ulcer disease: Status: Acute Assessment & Plan narrative: This is a 65-year-old man acute cholecystitis and gall stone pancreatitis. Pain is improving, labs improving. Pancreatitis may be improved enough for cholecystectomy tomorrow. Plan: IV fluid P.o. clears as tolerated IV antibiotics P.o. and IV pain meds as needed Home meds as appropriate Ambulate as tolerated DVT prophylaxis tonight, hold in AM NPO after midnight OR tomorrow for lap olaf COVID-19 COVID-19 status: Negative Result date/Date tested (Pos, Neg/Pending): 05/25/20 Time Spent With Patient Time with patient: Greater than 35 minutes Quality VTE Deep Vein Thrombosis/Pulmonary Embolism Present on Admission: No
[2020-05-26 08:00] VITALS: BP 126/74; PULSE 80; RESP 16; TEMP 36.8; O2SAT 92
[2020-05-26] MEDS: DOCUSATE 100 MG CAPSULE PO ×2 (08:46→21:11)
[2020-05-26] MEDS: GABAPENTIN 300 MG CAPSULE PO ×2 (08:46→21:11)
[2020-05-26] MEDS: PANTOPRAZOLE 40 MG VIAL IV ×2 (08:46→21:11)
[2020-05-26] MEDS: HEPARIN 5,000 UNIT/ML VIAL 5000 UNIT SUBCUT (08:46)
[2020-05-26] MEDS: PRAMIPEXOLE 1 MG TABLET PO ×2 (08:46→21:12)
[2020-05-26] MEDS: INFLUENZA VACCINE 0.5 ML SYRINGE IM (08:47)
--- NOTE | 2020-05-26 11:09 | PC.NURSE ---
Dayshift Note: Pt checked on and assessed. Pt tolerating CLD. Pt reports abdominal pain, 4/10 and tolerable at this time. Pt instructed to notify this RN if abdominal pain increases. Pt denies nausea. Abdomen is slightly firm, distended and pt reports feeling bloated. Pt received on RA with SPO2 WNL, lungs CTA with dim bases (history of pleurodesis and spontaneous pneumothorax). Pt walking around the unit. Requests dilaudid IV this afternoon for pain. Pt's at bedside, assisting with personal care. Will continue to monitor, notify MD with changes.
[2020-05-26 12:30] VITALS: BP 126/78; PULSE 79; RESP 16; TEMP 36.5; O2SAT 94
--- NOTE | 2020-05-26 14:54 | CM.IDA ---
Initial DCP Assessment Note Patient is a 65 yo male, resident of [place]. Patient found to have acute gallstone pancreatitis and cholecystitis, according to Dr Buckley, patient needs his gallbladder out although she will not take him to the OR until his pancreatitis and cholecystitis improve. PCP: None Listed ([place] [facility] Reviewed chart and met w/patient and his spouse Nazia, introduced role. Patient is indp. at baseline, spouse states she will be available to assist patient upon DC and both explain patient has no needs. Patient and spouse have many adult children, both together and from prior partners, and state they have a lot of support available. No DC needs expected, will follow closely and can reassess DC needs/concerns post surgically as needed. RIAN Lea Discharge Planning/Care Management CM Discharge Assessment Start: 05/26/20 14:50 Freq: Status: Active Protocol: Document 05/26/20 14:50 TALIA (Rec: 05/26/20 14:54 TALIA [id number]) Discharge Planning Assessment Assigned Director Pharmaceutical RIAN Esposito DPOA/Assigned Designee Name Nazia Mak, spouse Contact Information [phone] Advance Directives? No History Provided By Patient,Significant Other, Medical Record Prior Living Arrangements Mobile home Household Members spouse Type of transportation used prior to Drives own vehicle admit Independent with ADL's Yes Is patient alert and oriented? Yes Barriers to Discharge No Comment Likely home w/o needs Discharge Plan Home Transportation Arrangement Family Referrals Initiated None needed Additional Comment At this time
[2020-05-26 16:00] VITALS: BP 113/76; PULSE 77; RESP 20; TEMP 36.3; O2SAT 94
[2020-05-26 20:17] VITALS: BP 119/67; PULSE 71; RESP 20; TEMP 36.6; O2SAT 93
[2020-05-27] VITALS (21 sets, daily range): BP systolic 107–150; BP diastolic 57–85; PULSE 53–97; RESP 11–20; TEMP 36.1–37.4; O2SAT 91–100; BMI 25.7
--- NOTE | 2020-05-27 | PATH_ITS ---
[facility] Accession Number: [id number] . 01 Material submitted: . gallbladder - GALLBLADDER . 01 Clinical history: . SHARP PAIN IN BACK . 02 Diagnosis: Gallbladder, Cholecystectomy: Chronic cholecystitis with cholelithiasis. Negative for dysplasia and malignancy. MRV 05/31/2020 1321 Local . 02 Electronically signed: . Марина Smith MD, Pathologist NPI- [id number] . 01 Gross description: . The specimen is received in formalin, labeled gallbladder, and consists of a 6.5 x 3.4 x 2.6 cm intact gallbladder with a 0.3 cm in diameter cystic duct. The serosa is altamirano-pink to pink-purple and smooth. Opening reveals multiple green, bosselated choleliths and cholelith fragments ranging from 0.2 cm to 3.5 cm and measuring 4.5 x 4.0 x 3.5 cm in aggregate. The mucosa is altamirano-pink, velvety, and focally denuded. The wall thickness ranges from 0.1 cm to 0.3 cm. Game Programmer sections are submitted, to include the en face cystic margin (blue), body, and fundus in cassette A1. ([id number]) /FRR 05/28/2020 1746 Local . 02 Pathologist provided ICD-10: K80.60 . 02 CPT . 326194 Performed at: 01 [facility] [address] [facility], [place], [place] [id number] MD Robert Prieto MD Phone: [phone] Performed at: [address] [facility] [address] [place], [place] [id number] MD Марина Smith MD Phone: [phone]
[2020-05-27] MEDS: HYDROMORPHONE 0.5 MG INJ IV ×4 (00:04→13:45)
[2020-05-27] MEDS: LACTATED RINGERS 1,000 ML 150 ML IV ×4 (00:13→16:17)
[2020-05-27 05:02] LABS: Add Manual Diff / Slide Review NO; Basophils Absolute Auto 100 /uL (0-100); Basophils Percent Auto 0.9 % (0-2); Eosinophils Absolute Auto 600 /uL (0-450); Eosinophils Percent Auto 8.6 % (2-4); Hematocrit 34.2 % (41-53); Hemoglobin 11.5 g/dL (13.5-17.5); Lymphocytes Absolute Auto 900 /uL (1100-4500); Lymphocytes Percent Auto 13.1 % (25-40); Mean Corpuscular HGB Conc 33.8 % (30-36); Mean Corpuscular Hemoglobin 30.6 PG (26-34); Mean Corpuscular Volume 90.4 fL (80-100); Monocytes Absolute Auto 1000 /uL (0-900); Monocytes Percent Auto 15.5 % (3-14); Neutrophils Absolute Auto 4100 /uL (1500-7000); Neutrophils Percent Auto 61.9 % (50-75); Platelet Count 288 X10^3/uL (150-400); Red Blood Cell Count 3.78 X10^6/uL (4.5-5.9); Red Cell Distribution Width 13.7 % (11.6-14.8); White Blood Cell Count 6.7 X10^3/uL (4.5-11.0)
[2020-05-27 05:09] LABS: Alanine Aminotransferase 100 IU/L (<50); Albumin 3.4 g/dL (3.5-5.0); Albumin Globulin Ratio 0.9 (1.0-2.8); Alkaline Phosphatase 179 U/L (38-126); Aspartate Aminotransferase 47 IU/L (17-59); BUN Creatinine Ratio 9.4 (6-22); Bilirubin Total 1.4 mg/dL (0.2-1.3); Blood Urea Nitrogen 9 mg/dL (9-20); Calcium 8.5 mg/dL (8.4-10.2); Carbon Dioxide 33 mmol/L (22-32); Chloride 96 mmol/L (98-107); Estimated Glomerular Filt Rate > 60.0 mL/min (>60); Globulin 3.6 g/dL (1.7-4.1); Glucose 102 mg/dL (80-110); HEMOLYSIS 39 (0-50); Potassium 3.7 mmol/L (3.4-5.1); Sodium 131 mmol/L (137-145)
[2020-05-27 05:11] LABS: Magnesium 1.9 mg/dL (1.6-2.3)
[2020-05-27] MEDS: PIPERACILLIN-TAZO 3.375 GM/50 ML FROZ.PIGGY IV ×4 (06:10→23:52)
[2020-05-27] MEDS: PANTOPRAZOLE 40 MG VIAL IV ×2 (08:32→20:51)
--- NOTE | 2020-05-27 13:26 | PM.PN.1 ---
Subjective Subjective Date Patient Seen: 05/27/20 Time Patient Seen: 14:19 Interval history: Pt feeling better. Pain is almost entirely resolved. Denies nausea. Exam Vital Signs (past 8 hours): - 05/27/20 08:00 05/27/20 12:00 Temperature 97.9 F 97.4 F L Pulse Rate 60 59 L Respiratory Rate 16 16 Blood Pressure 111/62 120/68 Pulse Oximetry 93 93 Oxygen Delivery Method Room Air Oxygen Flow Rate 0 Narrative Exam Narrative: GENERAL: Well groomed and cooperative. Appears stated age. Answers questions promptly and appropriately. Vital signs noted. HENT: Normocephalic, atraumatic. Hearing intact. EYES: Conjunctiva pink, sclera white, no periorbital swelling. CARDIOVASCULAR: Regular rate. No pedal edema. Chest: Well-healed scar from right-sided pleurodesis done greater than 10 years ago RESPIRATORY: Non-tachypneic, breathing comfortably on room air. GASTROINTESTINAL: Abdomen soft, distended, mildly tender to palpation in the epigastrium and bilateral upper quadrant, slightly greater on the right than the left GENITALURINARY: No left flank tenderness, some mild right flank tenderness MUSCULOSKELETAL: Equal tone and mass bilaterally. SKIN: Warm, dry, soft, appropriate color for ethnicity. No other lesions, rashes, or wounds. NEURO: Alert and Oriented X 3. No gross sensory deficits, or cognitive issues. PSYCH: Appropriate affect and mood. Objective Labs Result Diagrams: 05/27/20 04:35 05/27/20 04:35 Labs: Laboratory Results - last 24 hr 05/27/20 05/27/20 05/27/20 04:35 04:35 04:35 WBC 6.7 RBC 3.78 L Hgb 11.5 L Hct 34.2 L MCV 90.4 MCH 30.6 MCHC 33.8 RDW 13.7 Plt Count 288 Neut % (Auto) 61.9 Lymph % (Auto) 13.1 L [place] % (Auto) 15.5 H Eos % (Auto) 8.6 H Baso % (Auto) 0.9 Neut # (Auto) 4100 Lymph # (Auto) 900 L [place] # (Auto) 1000 H Eos # (Auto) 600 H Baso # (Auto) 100 Sodium 131 L Potassium 3.7 Chloride 96 L Carbon Dioxide 33 H BUN 9 Creatinine 0.96 Estimated GFR > 60.0 BUN/Creatinine Ratio 9.4 Glucose 102 Calcium 8.5 Phosphorus 3.0 Magnesium 1.9 Total Bilirubin 1.4 H AST 47 ALT 100 H Alkaline Phosphatase 179 H Total Protein 7.0 Albumin 3.4 L Globulin 3.6 Albumin/Globulin Ratio 0.9 L Quality VTE Deep Vein Thrombosis/Pulmonary Embolism Present on Admission: No
[2020-05-27] MEDS: Non-Formulary Medication (Indocyanine 25 MG) 25 EACH IV (14:28)
--- NOTE | 2020-05-27 15:12 | SUR.OPER ---
Supine on padded OR bed, head on pillow, safety belt at thigh, left arm padded and tucked at side. Right arm secured on padded arm oard <90 degrees abduction. Legs uncrossed. Padded footboard in place. Tape over blanket to secure lower legs.
[2020-05-27] MEDS: BUPIVACAINE 0.25% W/ EPI (PF) 10 ML VIAL 20 ML INJ (15:21)
--- NOTE | 2020-05-27 16:59 | PM.OP.1 ---
Operative Date/Time/Diagnoses Date of procedure: 05/27/20 Time of procedure: 16:59 Pre-op diagnosis: Acute cholecystitis, gall stone pancreatitis Post-op diagnosis: same Procedure & Clinicians Procedure: Laparoscopic cholecystectomy Indocyanine green choangiography Same procedure as scheduled: Yes Indications: Acute on chronic cholecystitis, acute gall stone pancreatitis Surgeon: Jeannette Mathur Click Yes if Unassisted: Yes Anesthesia Type: General Operative Notes Findings: Thickened, inflamed gallbladder with multiple accessory blood vessels that had to be controlled Specimen(s): other (Gallbladder and contents) Applied: drain(s) (Nineteen round Brooks drain) Estimated Blood Loss (mL): 250 Procedure in detail: The patient was brought into the operating room and placed supine on the OR table. Sequential compression devices were placed on both legs and turned on. Appropriate perioperative antibiotics were given prior to the start of surgery. General anesthesia was induced the patient was intubated. The abdomen was prepped and draped in sterile fashion. Surgical time-out was conducted. Local anesthetic was injected under the skin just superior to the umbilicus and a 5 mm vertical incision was made at this site. The umbilical stalk was grasped with a Vasquez and elevated. A Veress needle was passed through the fascia into proper position. The position was tested with a saline drop test which was appropriate for intra-abdominal Veress needle placement. The abdomen was then insufflated in the usual fashion. Once insufflated to 15 mm Hg the Veress needle was removed and a 5 mm optical trocar was placed under direct vision using a 5 mm 30 degree scope. Once the camera was inside the abdomen I took a look around. There was no injury from port placement. Two additional ports were placed in a similar fashion in the right upper quadrant and a 10 mm port was placed in the epigastrium. Through the 2 lateral ports the gallbladder was grasped and elevated and the infundibulum was retracted laterally to the patient's right. This exposed the gallbladder hilum and allowed for dissection of the cystic duct and cystic artery. The gallbladder was thick and hard with some very large gallstones inside, making it very difficult to get a good flight hostess on it. His ribs were quite narrow, leaving little room to elevate the gallbladder for adequate dissection. There was quite a bit of dense scar tissue throughout the gallbladder hilum. This required tedious careful dissection to avoid injury to the bile ducts. Visualization was quite poor at the infundibulum due to the small space, and dense scar tissue. I turned on the fluorescent lamp, and even with indocyanine green visualization I was not able to safely dissect out the cystic duct through all of the dense scar. Therefore I turned my attention to the top of the gallbladder fundus and began working my way from the top down. The gallbladder was retracted upwards towards the anterior abdominal wall and caudally away from the liver. A 2nd instrument was used to push up on the liver, and peritoneum between the gallbladder and liver was opened from the top down. I carefully dissected the plane between the gallbladder and the liver, which was very thick and vascular plane. There were several arterial branches going between the gallbladder and the liver, which had to be controlled during dissection. There was some arterial bleeding, which was difficult to control, but was completely controlled with clips during the course of the dissection. About 250 of blood loss occurred during the dissection because of these aberrant vessels. During the course of dissection I turned back towards elevating the gallbladder and retracting it to the right in order to get a critical view of safety. As I dissected from the top down I was also able to get a better view from the bottom as things became more free. Working from the top and the bottom in piecemeal fashion I was able to control all of the accessory vessels, and safely divide the gallbladder off of the gallbladder fossa. Finally I reached the cystic duct, and had it fully dissected out. I put to 0 PDS Endoloops around the cystic duct just below the neck of the infundibulum. I palpated the duct to make sure there were no firm pieces of gallstone within the cystic duct. I then divided the gallbladder just beyond the endo-loops across the infundibulum, and placed it inside an Endo-Catch bag and removed through the epigastric port site. I did have to enlarge the epigastric site in order to get the gallbladder out. Once it was out and passed off to the back table I then took another look inside the abdomen. I suctioned clean any remaining blood or fluid on the lateral side of the liver and in the subhepatic space. There was no active bleeding or leaking of bile from the gallbladder fossa or from the clipped stumps of the cystic duct and artery, or from the clipped arterial branch. I placed a 19 round Brooks drain through the right lateral port site and positioned it in the subhepatic space. It was secured to the skin with a 3-0 nylon suture. At this point the insufflation was removed from the abdomen and the epigastric port site was closed with 0 Vicryl suture in the fascia, 3 O Vicryl in the subcutaneous layers, and 4 Monocryl in the skin. The remaining port sites were closed with 4 Monocryl in the skin. Each port site was sealed with Dermabond. Local anesthetic was given at each of the port sites and in the fascia. This concluded the procedure. At this point the needle sponge and instrument counts were correct. The gallbladder was passed off the table for pathology. Patient was awakened from anesthesia and extubated. The patient was transferred to the postanesthesia care unit in stable condition. Complications: none Post-operative Condition: stable Disposition: PACU
[2020-05-27] MEDS: fentaNYL 100 MCG/2 ML INJ IV ×2 (17:30→18:00)
[2020-05-27] MEDS: HYDROMORPHONE 2 MG INJ IV ×2 (17:35→17:55)
[2020-05-27] MEDS: KETOROLAC 30 MG/ML VIAL IV (17:51)
[2020-05-27] MEDS: ACETAMINOPHEN 325 MG TABLET 650 MG PO (18:00)
[2020-05-27] MEDS: OXYCODONE IR 5 MG TABLET PO ×2 (18:00→23:52)
[2020-05-27] MEDS: GABAPENTIN 300 MG CAPSULE PO (20:50)
[2020-05-27] MEDS: DOCUSATE 100 MG CAPSULE PO (20:50)
[2020-05-27] MEDS: PRAMIPEXOLE 1 MG TABLET PO (20:51)
--- NOTE | 2020-05-27 22:04 | PC.NURSE ---
Pt arrived back in room 228 from PACU at 1830, awake and alert, abdominal incisions dry and intact, Brooks drain to R side of abdomen draining small amount of serosangenous drainage. Abdomen is round and tympanic, tender around incision. Bowel sounds hypoactive. Taking clear liquids well, advanced to full liq without nausea. States pain is controlled with icepacks at this time. IV saline locked as ordered. Stood at the bedside to urinate.
--- NOTE | 2020-05-28 00:13 | PC.NURSE ---
Addendum entered by Joaquina Salazar R.N. 05/28/20 01:55: Patient being transferred to Acute Care room 223. Stable, minimal output in Brooks drain. Pain well controlled with PO analgesia. Report to ANDREW Swenson. Original Note: Patient ambulating on unit using FWW at start of shift - steady gait. Tolerating full liquid diet, advanced as ordered for breakfast. Patient tolerating crackers currently and taking adequate PO fluids. C/O pain 7/10 after walking, medicated per orders with adequate relief.
[2020-05-28 00:33] VITALS: O2SAT 94
[2020-05-28] MEDS: HYDROMORPHONE 0.5 MG INJ IV (02:10)
[2020-05-28 05:15] LABS: Add Manual Diff / Slide Review NO; Basophils Absolute Auto 100 /uL (0-100); Basophils Percent Auto 0.7 % (0-2); Eosinophils Absolute Auto 500 /uL (0-450); Eosinophils Percent Auto 7.5 % (2-4); Hematocrit 34.6 % (41-53); Hemoglobin 11.5 g/dL (13.5-17.5); Lymphocytes Absolute Auto 800 /uL (1100-4500); Lymphocytes Percent Auto 11.7 % (25-40); Mean Corpuscular HGB Conc 33.2 % (30-36); Mean Corpuscular Volume 90.5 fL (80-100); Monocytes Absolute Auto 900 /uL (0-900); Monocytes Percent Auto 13.1 % (3-14); Neutrophils Absolute Auto 4800 /uL (1500-7000); Platelet Count 302 X10^3/uL (150-400); Red Blood Cell Count 3.82 X10^6/uL (4.5-5.9); Red Cell Distribution Width 13.7 % (11.6-14.8); White Blood Cell Count 7.1 X10^3/uL (4.5-11.0)
[2020-05-28 05:23] LABS: Phosphorous 4.1 mg/dL (2.3-3.7)
[2020-05-28 05:24] VITALS: BP 106/56; PULSE 60; RESP 18; TEMP 36.4; O2SAT 99
[2020-05-28] MEDS: OXYCODONE IR 5 MG TABLET PO (06:10)
[2020-05-28] MEDS: PIPERACILLIN-TAZO 3.375 GM/50 ML FROZ.PIGGY IV (06:29)
[2020-05-28 08:00] VITALS: BP 119/58; PULSE 54; RESP 16; TEMP 36.4; O2SAT 90
--- NOTE | 2020-05-28 08:12 | P.DS_ITS ---
History of Present Illness History of Present Illness Chief complaint: sharp pain in back Narrative: This is a 65 yo man with h/o ankylosing spondylitis currently on Enbrel and daily Motrin, restless leg syndrome, who presented to the ER today with severe epigastric and midthoracic back pain that is been present since Saturday and seems to be getting worse. He says that he has had a disturbing pain in his abdomen for about 1 year. He says it is worse with eating anything spicy or acidic. He describes the pain is epigastric, and traveling in a band underneath his ribs on the right and left sides. He does not notice any worsening pain with eating foods that her fatty or greasy. He takes NSAIDs daily for his arthritis. He says he had an upper endoscopy about 3 years ago, and was put on omeprazole about 1 year ago by a doctor at the [facility]. He takes omeprazole 20 mg once daily. He denies any constipation, diarrhea, nausea, vomiting, fevers. He says he has never had a colonoscopy. In the ER he had a CT scan and labs. The skin T scan showed large gallstones, some gas bubbles in the duodenum which may be actually pneumatosis in the wall of the duodenum, and pancreatitis at the pancreatic head with surrounding fat stranding. Severe emphysematous changes were seen at the lung bases. Labs revealed elevated white blood cell count, elevated bilirubin at 3.0, elevated lipase at 303, elevated alk-phos at 343. He had an MRCP due to the elevated bilirubin, which revealed pancreatitis, gallstones, possible gas bubbles trapped within the duodenum, rather than in the duodenal wall, and no obvious obstruction of the common bile duct. The patient was admitted to the floor, and started on IV antibiotics, clear liquid diet, and IV fluids. He is getting pain meds and antiemetics as needed. He denies having any nausea. He feels that his abdomen is getting more distended and a little bit more hard. He still having a similar pain to what he was having, but is is controlled with pain meds. ROS: Reports no black stools, no chills no fevers no dizziness but he states the pain is severe enough that he can not get comfortable. It is worse with movement but not with deep breathing. He reports no cough, fevers, chills, wheeze, lower extremity edema or orthopnea. Denies dysuria, chest pain, shortness of breath. Reports a history of spontaneous pneumothoraces, which have not recurred since pleurodesis. He denies any residual symptoms such as shortness of breath. Thirteen system review is otherwise negative other than as mentioned below and in HPI. PE: GENERAL: Well groomed and cooperative. Appears stated age. Answers questions promptly and appropriately. Vital signs noted. HENT: Normocephalic, atraumatic. Hearing intact. EYES: Conjunctiva pink, sclera white, no periorbital swelling. CARDIOVASCULAR: Regular rate. No pedal edema. Chest: Well-healed scar from right-sided pleurodesis done greater than 10 years ago RESPIRATORY: Non-tachypneic, breathing comfortably on room air. GASTROINTESTINAL: Abdomen soft, distended, mildly tender to palpation in the epigastrium and bilateral upper quadrant, slightly greater on the right than the left GENITALURINARY: No left flank tenderness, some mild right flank tenderness MUSCULOSKELETAL: Equal tone and mass bilaterally. SKIN: Warm, dry, soft, appropriate color for ethnicity. No other lesions, rashes, or wounds. NEURO: Alert and Oriented X 3. No gross sensory deficits, or cognitive issues. PSYCH: Appropriate affect and mood. Discharge Providers Provider Date of admission: 05/25/20 10:23 Discharge Date: 05/28/20 Consults: 05/25/20 19:12 Consult to Discharge Planning Routine Comment: Patient has concerns about his VA coverage Consult to Utilization Review Physician Routine Comment: 05/27/20 14:15 Consult to Respiratory Therapy Evaluate & Treat Comment: Physician Instructions: Evaluate and treat Discharge provider: Jeannette Mathur MD Summary Hospital Course Discharge Diagnosis: Gallstone pancreatitis, acute on chronic cholecystitis Hospital Course: Patient was admitted and treated for pancreatitis, as well as cholecystitis. Once his pancreatitis symptoms resolved, we took him to the operating room and remove his gallbladder. He tolerated surgery well, is recovering well on postop day 1. He is deemed appropriate for discharge. Status at Discharge Cognitive/behavioral status at discharge: at baseline, oriented Functional status at discharge: independent ambulation Overall status at discharge: patient is progressing back to baseline Time Spent with Patient Time spent: Greater than 30 minutes Exam Vital Signs (past 8 hours): - 05/28/20 00:33 05/28/20 05:24 Temperature 97.5 F L Pulse Rate 60 Respiratory Rate 18 Blood Pressure 106/56 L Pulse Oximetry 94 99 Oxygen Delivery Method CPAP Oxygen Flow Rate 2 Narrative Exam Narrative: GENERAL: Well groomed and cooperative. Appears stated age. Answers questions promptly and appropriately. Vital signs noted. HENT: Normocephalic, atraumatic. Hearing intact. EYES: Conjunctiva pink, sclera white, no periorbital swelling. CARDIOVASCULAR: Regular rate. No pedal edema. Chest: Well-healed scar from right-sided pleurodesis done greater than 10 years ago RESPIRATORY: Non-tachypneic, breathing comfortably on room air. GASTROINTESTINAL: Abdomen soft, distended, appropriate tenderness to palpation for postop day 1. YOUNG drain with serosanguineous, and was removed during exam, incisions clean dry and intact Objective Labs Result Diagrams: 05/28/20 05:00 05/27/20 04:35 Labs: Laboratory Results - last 24 hr 05/28/20 05/28/20 05:00 05:00 WBC 7.1 RBC 3.82 L Hgb 11.5 L Hct 34.6 L MCV 90.5 MCH 30.0 MCHC 33.2 RDW 13.7 Plt Count 302 Neut % (Auto) 67.0 Lymph % (Auto) 11.7 L [place] % (Auto) 13.1 Eos % (Auto) 7.5 H Baso % (Auto) 0.7 Neut # (Auto) 4800 Lymph # (Auto) 800 L [place] # (Auto) 900 Eos # (Auto) 500 H Baso # (Auto) 100 Phosphorus 4.1 H D Magnesium 2.0 Discharge Assessment & Plan Assessment and Plan Assessment: Patient was treated for gallstone pancreatitis, and cholecystitis. Gallbladder was removed yesterday on 05/27/2020. Plan of Treatment: Discharge home with as needed pain medication, and instructions to avoid heavy lifting and straining for 4 weeks. He was instructed to follow-up in 2-3 weeks at the [facility] Discharge Plan Discharge Plan Patient Disposition: Home Provider Discharge Comment: You will be prescribed a narcotic pain medication. You may also use ibuprofen or Aleve as well as Tylenol/ Acetaminophen for pain after surgery. Make sure you do not take more than 3000 mg of Acetaminophen per day from any source. There may be Acetaminophen in your prescription pain medication, cold medications or headache remedies. Using an NSAID such as ibuprofen or Aleve will help with inflammation. Do not take more than recomme nded. You may take it along with or instead of your prescribed pain medication. Make sure to take the stool softener to prevent constipation from the narcotic pain medication. If you are not able have a bowel movement 24 hours after surgery, or you feel constipated please take an additional laxative such as MiraLax or Senna. Avoid any straining on the toilet. Avoid heavy lifting, pulling, or pushing more than 10 lbs or doing other activities that strain the abdomen or increase the abdominal pressure such as sit-ups, core work outs, and attempt to prevent frequent coughing. If you have fevers, jaundice, intractable nausea/vomiting, or intractable pain please call the doctor's office or if symptoms are severe come into the ER. If you call after hours please choose the option to contact the surgeon correctional case records supervisor rather than leaving a message. Discharge orders & Medications Prescriptions: New oxycodone 5 mg tablet 5 mg PO Q6H PRN (Reason: post operative pain) Qty: 20 RF: 0 docusate sodium 100 mg capsule 100 mg PO BID Qty: 20 RF: 0 Continued pramipexole 1 mg Tablet 1 mg PO BID RF: 0 ferrous sulfate 325 mg (65 mg iron) Tablet 325 mg PO TID RF: 0 gabapentin 300 mg Capsule 300 mg PO BID RF: 0 ibuprofen 600 mg Tablet 600 mg PO Q6H PRN (Reason: Pain (Scale Score 4-6)) RF: 0 cholecalciferol (vitamin D3) 25 mcg (1,000 unit) Capsule 25 mcg PO DAILY RF: 0 etanercept 50 mg SUBCUT WEEKLY RF: 0 Follow up/Referrals: Jeannette Mathur MD [Physician] - (Please call on Saturday make a follow-up appointment to see Dr. Mathur the June) Diet/Activity/Treatments Diet: Diet as Tolerated Activity: Avoid making important decisions, driving a car, operating heavy machinery for 24 hours after sedation. Skin/Wound/Dressing Care Report to your healthcare provider any signs of infection, such as:: chills, fever, night sweats, increased pain, unusual drainage and unusual redness Visit Report/Discharge Packet Instructions: DI for Heart Failure, DI for Open Cholecystectomy, DI for Laparoscopy, DI for Prescription Opioid Use, DI for Laparoscopic Cholecystectomy, [facility]: Wound Care Stand Alone Forms: Surgery Discharge Visit Report Forms: Congestive Heart Failure, Patient Portal/API, Stroke Signs & Symptoms Quality VTE Deep Vein Thrombosis/Pulmonary Embolism Present on Admission: No
[2020-05-28] MEDS: DOCUSATE 100 MG CAPSULE PO (08:34)
[2020-05-28] MEDS: PANTOPRAZOLE 40 MG VIAL IV (08:34)
[2020-05-28] MEDS: GABAPENTIN 300 MG CAPSULE PO (08:34)
[2020-05-28] MEDS: PRAMIPEXOLE 1 MG TABLET PO (08:34)
--- NOTE | 2020-05-28 10:39 | PC.NURSE ---
Addendum entered by Dirk Benz R.N. 05/28/20 11:57: Pt readied for d/c. Pt a&o states understanding of d/c instructions. also states understanding. IV d/c'd intact. Pt escorted to car by Joanie [facility] via w/c. Pt discharged to care of . Original Note: Pt alert, conversant. Asking about going home. States feels good. Dr. Mathur in to see Pt and discuss d/c. Dr. Mathur did d/c drain while discussing discharge. Steri stripped site and covered with gauze. attentive at bedside. IVHL patent. Pt planning for d/c.
== END 2020-05-28 11:55 | disposition home or self-care (01) | DRG 418 ==
LOC: ED 05-25 10:15 → AC 05-25 10:25 → ICU 05-25 11:48 → AC 05-28 02:06
PROVIDERS: Emergency Medicine; Admitting Provider Surgery; Emergency Provider Emergency Medicine; Referring Provider Emergency Medicine; Visit Provider Surgery
PROC: 0FT44ZZ Resection of Gallbladder, Percutaneous Endoscopic Approach (ICD-10-PCS; CPT 47562; principal; 2020-05-27 14:00)
DX: K85.10 Biliary acute pancreatitis without necrosis or infection (principal); K80.12 Calculus of gallbladder with acute and chronic cholecystitis without obstruction
CPT/HCPCS: 36415; 47563; 72070; 74177; 74181; 80053; 81001; 83605; 83690; 83735; 84100; 84145; 84484; 85025; 86140; 87040; 87635; 87797; 90471; 90656; 93005; 94660; 94762; 96365; 99222; 99285; C9113; J1170; J1644; J1885; J2543; J2704; J3010; Q2038

== ENCOUNTER → 2021-11-22 15:44 | Outpatient (CLI) | payer OTHER, SELFPAY ==
[2021-10-31 12:45] VITALS: BMI 25.4
--- NOTE | 2021-11-22 15:46 | DI.US.S_ITS ---
PROCEDURE: US ABD AORTA ANEURYSM SCREEN INDICATIONS: AAA SCREENING TECHNIQUE: Real time scanning was performed of the aorta and iliac arteries, with image documentation. COMPARISON: None. FINDINGS: Aorta: Proximal aortic diameter measures 2.2 cm. Mid-aorta measures 1.9 cm. Distal aortic diameter is 1.6 cm. Iliac arteries: Right common iliac artery measures 0.9 cm. Left common iliac artery measures 0.9 cm. IMPRESSION: No abdominal aortic or proximal common iliac artery aneurysm. Dictated by: Yunior GALLAGHER Interpreted: Taylor Hill MD on 11/22/2021 at 16:21 Transcribed by: TYE on 11/22/2021 at 16:22 Approved by: Taylor Hill M.D. on 11/22/2021 at 17:11
== END ==
PROVIDERS: Referring Provider Internal Medicine; Visit Provider Internal Medicine
DX: Z13.6 Encounter for screening for cardiovascular disorders (principal)
CPT/HCPCS: 76706

== ENCOUNTER 2022-11-22 13:28 | Emergency (ER) | payer OTHER, SELFPAY ==
[2021-10-31 12:45] VITALS: BMI 25.4
[2022-11-22 13:33] VITALS: BP 131/68; PULSE 109; RESP 18; TEMP 36.6; O2SAT 94; BMI 27.9
[2022-11-22 17:16] VITALS: BP 137/70; PULSE 77; RESP 16; TEMP 36.6; O2SAT 96
--- NOTE | 2022-11-22 18:21 | ED.UPPEXIN ---
HPI - Extremity Injury (Upper) <Eden Araujo PA-C - Last Filed: 11/22/22 20:55> General Chief Complaint: Extremity Injury, Upper Stated Complaint: lac on LT thumb poss stitches Time Seen by Provider: 11/22/22 17:33 Source: patient Mode of arrival: Ambulatory History of Present Illness HPI narrative: 67-year-old male presents with concern for laceration to his left thumb and hand. Patient states that he was cleaning a hatchet and getting the rust off of it, and after doing so when he was trying to cut some kindling he accidentally had it bounce back and the hatchet sliced into his thumb. He said it bled quite a bit but was able to get the bleeding controlled with pressure. His thought he would need stitches so he came in for further evaluation. He denies dizziness lightheadedness persistent bleeding or any other symptoms. Also denies previous injury or surgery to this thumb or hand. Related Data Home Medications Medication Instructions Recorded Confirmed cholecalciferol (vitamin D3) 25 25 mcg PO DAILY 05/25/20 06/14/20 mcg (1,000 unit) capsule etanercept 50 mg SUBCUT WEEKLY 05/25/20 06/14/20 ferrous sulfate 325 mg (65 mg 325 mg PO TID 05/25/20 06/14/20 iron) tablet gabapentin 300 mg capsule 300 mg PO BID 05/25/20 06/14/20 ibuprofen 600 mg tablet 600 mg PO Q6H PRN Pain (Scale 05/25/20 06/14/20 Score 4-6) pramipexole 1 mg tablet 1 mg PO BID 05/25/20 06/14/20 Previous Rx's Medication Instructions Recorded docusate sodium 100 mg capsule 100 mg PO BID prevent constipation 05/28/20 #20 caps oxycodone 5 mg tablet 5 mg PO Q6H PRN post operative 05/28/20 pain #20 tabs amoxicillin 500 mg-potassium 1 tab PO Q8H 7 days #21 tabs 11/22/22 clavulanate 125 mg tablet (Augmentin) Allergies Allergy/AdvReac Type Severity Reaction Status Date / Time No Known Drug Allergies Allergy Verified 11/22/22 13:36 Review of Systems <Eden Araujo PA-C - Last Filed: 11/22/22 20:55> Review of Systems Narrative: See HPI Patient History <Eden Araujo PA-C - Last Filed: 11/22/22 20:55> Medical History (Updated 11/22/22 @ 19:48 by Eden Araujo PA-C) Ankylosing spondylitis Restless leg syndrome Spontaneous pneumothorax Social History household members: spouse Smoking Status: Former smoker Smoking Status: Former smoker alcohol intake frequency: holidays/special occasions only Substance Use Type: does not use Exam <Eden Araujo PA-C - Last Filed: 11/22/22 20:55> Narrative Exam Narrative: GENERAL: [67] year old patient appears stated age. Well-developed patient, in mild distress. HEAD: Atraumatic. Normocephalic. EYES: Pupils equal round and reactive. Extraocular motions intact. No scleral icterus. No injection or drainage. ENT: Nose without bleeding, purulent drainage. Airway patent. NECK: Trachea midline. CARDIOVASCULAR: Regular rate and rhythm without murmurs, gallops, or rubs. RESPIRATORY: Clear to auscultation. Breath sounds equal bilaterally. No wheezes, rales, or rhonchi. EXTREMITIES: There is a deep full-thickness approximately 3 to 4 cm curvilinear flap laceration on the medial aspect of the patient's left thumb between the MCP and the DIP No edema or joint tenderness. Patient has intact sensation, strength and range of motion of the left thumb. There is a more superficial laceration abrasion located laterally and proximal to the 2nd digit. Bleeding is controlled. BACK: Nontender without deformity or crepitance. No flank tenderness. NEURO: AOx3. SKIN: see extremities, No rash or erythema of visible areas Initial Vital Signs Initial Vital Signs: Vital Signs Temperature 97.9 F 11/22/22 13:33 Pulse Rate 109 H 11/22/22 13:33 Respiratory Rate 18 11/22/22 13:33 Blood Pressure 131/68 11/22/22 13:33 Pulse Oximetry 94 11/22/22 13:33 Oxygen Delivery Method Room Air 11/22/22 13:33 <Lola Brian DO - Last Filed: 11/23/22 03:20> Initial Vital Signs Initial Vital Signs: Vital Signs Temperature 97.9 F 11/22/22 13:33 Pulse Rate 109 H 11/22/22 13:33 Respiratory Rate 18 11/22/22 13:33 Blood Pressure 131/68 11/22/22 13:33 Pulse Oximetry 94 11/22/22 13:33 Oxygen Delivery Method Room Air 11/22/22 13:33 Procedures <JAMIE Valverde Last Filed: 11/22/22 20:55> Laceration Repair Laceration 1: Time of procedure: 19:10 Site: hand Side (If applicable): left Size (cm): 2.5 Description: flap Depth: simple, single layer Local Anesthetic: lidocaine 2% and with epi Amount of anesthesia used (mL): 2 Pre-repair: wound explored, irrigated extensively, deep structures intact and cleansed with chlorhexadine Skin layer closed with: nylon Skin layer suture size: 5-0 Number of sutures: 7 Technique: simple, interrupted Course <JAMIE Valverde Last Filed: 11/22/22 20:55> Orders Ordered: ED Orders 11/22/22 18:28 XR finger LT min 2V Stat Discontinued Medications Amoxicillin/Clavulanate Potassium (Amoxicillin/Clav 875/125 Mg) 1 tab PO NOW ONE Stop: 11/22/22 19:52 Last Admin: 11/22/22 20:01 Dose: 1 tab Documented By: DU Vital Signs Vital signs: Vital Signs - 8 hr 11/22/22 20:02 Temperature 97.6 F Pulse Rate 76 Respiratory Rate 16 Blood Pressure 138/83 Pulse Oximetry 96 Oxygen Delivery Method Room Air <Lola Brian DO - Last Filed: 11/23/22 03:20> Orders Ordered: ED Orders 11/22/22 18:28 XR finger LT min 2V Stat Discontinued Medications Amoxicillin/Clavulanate Potassium (Amoxicillin/Clav 875/125 Mg) 1 tab PO NOW ONE Stop: 11/22/22 19:52 Last Admin: 11/22/22 20:01 Dose: 1 tab Documented By: DU Vital Signs Vital signs: Vital Signs - 8 hr 11/22/22 20:02 Temperature 97.6 F Pulse Rate 76 Respiratory Rate 16 Blood Pressure 138/83 Pulse Oximetry 96 Oxygen Delivery Method Room Air MDM - Extremity Injury (Upper) <JAMIE Valverde Last Filed: 11/22/22 20:55> Differential Diagnosis Differential diagnosis: Likely other (Laceration, fracture, soft tissue injury, vascular injury) Medical Records Attestation: I reviewed the patient's medical records. Imaging Data Extremity x-ray #1: My Impression: Agree with Radiology interpretation Radiologist's Impression: [address] [address] XRay Report Signed Patient: Jace Mak MR#: [id number] : 1955 Acct:[id number] Age/Sex: 67 / M Date of Service: 11/22/22 Loc: ED Accession Number: [id number] ?? Procedure: XR finger LT min 2V Ordering Provider: Eden Araujo P.A-C PROCEDURE:? XR FINGER LT MIN 2V ? INDICATIONS:? hatchet to Left thumb ? TECHNIQUE:? AP hand, 2 views of the left 1st finger(s) acquired.? ? COMPARISON:? None. ? FINDINGS:? ? Bones:? There is an ossicle versus fracture off the palmar aspect of the 1st distal phalanx which is seen on a single view only.? Incidental note is made of radiodense foreign body lateral to the 2nd PIP joint.? 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 ? Soft tissues:? No suspicious soft tissue calcifications.? No radiodense foreign bodies in the 1st digit. ? IMPRESSION:? ? 1. Ossicle versus fracture off the ventral base of the 1st distal phalanx.? Correlation with site of injury is recommended as an ossicle here is common. ? 2. No other definite fracture.? ? ? Dictated by: Gale Morfin M.D. on 11/22/2022 at 19:29 ? ? Approved by: Gale Morfin M.D. on 11/22/2022 at 19:31?? MDM Narrative Medical decision making narrative: This is a 67-year-old male with prediabetes who presents with concern for injury to his left thumb sustained accidentally from a hatchet today. Patient's tetanus is up-to-date, wound is deep and x-rays are obtained for further evaluation, radiologist notes that there is a possible Ossicle versus subtle fracture of the distal 1st phalanx. Patient's strength and range of motion are intact and I do not have suspicion for tendon injury, based on the depth of the wound and radiology concern and patient has prediabetes state, patient is referred to Orthopedics and he is placed on Augmentin for prophylaxis against infection. Wound is repaired as above and procedures. Return precautions provided, follow-up plan discussed, all questions answered. Discharge Plan Departure Patient Disposition: Home Clinical Impression: Laceration of left thumb Activity Restrictions/Additional Instructions: Thank you for letting us be part of your care today in the emergency department, thank you for your patients. You did sustain a deep laceration to left thumb but it appears ear tendons are intact and her thumb is working well. X-rays did show a possible subtle fracture versus an ossicle which is a small bony prominence that can happen naturally, for this reason because of the depth of the laceration I would like you to follow-up with Orthopedics, I am putting 1 antibiotics as we discussed. Your wound was cleaned and closed today with stitches, these need to come out in 8-10 days, because this is a high motion area even after your stitches are out you may need to have Steri-Strips or a finger splint to support the area after the stitches are out. You can have these removed at your primary care provider's office, you can come back to the emergency department or go to an urgent care to have the stitches removed. Please contact the orthopedic provider listed here regarding follow-up. There is no evidence of an emergent or life threatening illness at this time, but follow up with your doctor in 1-2 days is recommended nonetheless to continue to rule out serious underlying causes of your symptoms. Please call the office for an appointment. Please return to the Emergency Department for any worsening or persistent symptoms. Please take medications as directed. Prescriptions: New amoxicillin-pot clavulanate [Augmentin] 500-125 mg tablet 1 tab PO Q8H 7 Days Qty: 21 0RF No Action pramipexole 1 mg Tablet 1 mg PO BID ferrous sulfate 325 mg (65 mg iron) Tablet 325 mg PO TID gabapentin 300 mg Capsule 300 mg PO BID ibuprofen 600 mg Tablet 600 mg PO Q6H PRN (Reason: Pain (Scale Score 4-6)) cholecalciferol (vitamin D3) 25 mcg (1,000 unit) Capsule 25 mcg PO DAILY etanercept 50 mg SUBCUT WEEKLY oxycodone 5 mg tablet 5 mg PO Q6H PRN (Reason: post operative pain) Qty: 20 0RF docusate sodium 100 mg capsule 100 mg PO BID Qty: 20 0RF Referrals: Holly Stout MD [Primary Care Provider] - Delaney Christianson MD [Physician] - Stand Alone Forms: Patient Portal/API <Lola Brian DO - Last Filed: 11/23/22 03:20> Cosign ED Attending Cosignature Attestation: I was immediately available in the department for consultation. Documentation has been reviewed.
--- NOTE | 2022-11-22 18:28 | DI.RAD.S_ITS ---
PROCEDURE: XR FINGER LT MIN 2V INDICATIONS: hatchet to Left thumb TECHNIQUE: AP hand, 2 views of the left 1st finger(s) acquired. COMPARISON: None. FINDINGS: Bones: There is an ossicle versus fracture off the palmar aspect of the 1st distal phalanx which is seen on a single view only. Incidental note is made of radiodense foreign body lateral to the 2nd PIP joint. 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 Soft tissues: No suspicious soft tissue calcifications. No radiodense foreign bodies in the 1st digit. IMPRESSION: 1. Ossicle versus fracture off the ventral base of the 1st distal phalanx. Correlation with site of injury is recommended as an ossicle here is common. 2. No other definite fracture. Dictated by: Gale Morfin M.D. on 11/22/2022 at 19:29 Approved by: Gale Morfin M.D. on 11/22/2022 at 19:31
[2022-11-22] MEDS: AMOXICILLIN/CLAV 875/125 MG 1 TAB PO (20:01)
[2022-11-22 20:02] VITALS: BP 138/83; PULSE 76; RESP 16; TEMP 36.4; O2SAT 96
== END 2022-11-22 20:03 | disposition home or self-care (01) ==
PROVIDERS: Emergency Provider Student in an Organized Health Care Education/Training Program; PCP Internal Medicine
DX: S61.012A Laceration without foreign body of left thumb without damage to nail, initial encounter (principal); W26.9XXA Contact with unspecified sharp object(s), initial encounter
CPT/HCPCS: 12001; 73140; 99283; 99284

== ENCOUNTER 2023-07-02 16:42 | Emergency (ER) | payer OTHER, SELFPAY ==
[2021-10-31 12:45] VITALS: BMI 25.4
[2023-07-02] VITALS (7 sets, daily range): BP systolic 101–120; BP diastolic 56–66; PULSE 81–87; RESP 18–20; TEMP 36.6; O2SAT 93–99; BMI 25.1
--- NOTE | 2023-07-02 17:17 | DI.RAD.S_ITS ---
PROCEDURE: XR CHEST 1V INDICATIONS: chest pain TECHNIQUE: One view of the chest was acquired. COMPARISON: [facility], CT, CT CERVICAL SPINE WO CON, 07/02/2023, 17:50. [facility], CT, CT HEAD/BRAIN WO CON, 07/02/2023, 17:50. [facility], CR, CHEST 2 VIEW, 08/30/2008, 23:48. [facility], CR, XR THORACIC SPINE 2V, 05/24/2020, 22:34. [facility], CT, THORAX WITHOUT CONTRAST, 10/18/2016, 10:22. FINDINGS: Surgical changes and devices: Cholecystectomy clips are seen. Lungs and pleura: Consolidative change can be seen involving the lung apices. No large pneumothorax or large pleural effusions are seen. Low lung volumes are noted. This causes a crowded appearance to the lung markings and limits evaluation. Mediastinum: Mediastinal contours appear normal. Heart size is normal. Bones and chest wall: No suspicious bony lesions. Overlying soft tissues appear unremarkable. IMPRESSION: There is consolidative change seen involving the lung apices. When correlation is made with prior studies, this is attributed to chronic fibrosis/scarring change. Low lung volumes. Dictated by: Edin Spivey M.D. on 07/02/2023 at 17:21 Approved by: Edin Spivey M.D. on 07/02/2023 at 17:22
--- NOTE | 2023-07-02 17:20 | PC.NURSE ---
Pt reports an episode of unresponsiveness later in the day after the fall around 3:45-4pm which lasted for about 45 seconds. Pt states he got sweaty and that was the last thing he remembers until his was shaking him.
--- NOTE | 2023-07-02 17:28 | ED.HEATRA ---
HPI - Head Injury General Chief complaint: Head Injury Stated complaint: FELL/lower spine and head inj/eyes rolling Time Seen by Provider: 07/02/23 17:28 Source: patient and family Mode of arrival: Wheelchair Related Data Home Medications Medication Instructions Recorded Confirmed cholecalciferol (vitamin D3) 25 25 mcg PO DAILY 05/25/20 06/14/20 mcg (1,000 unit) capsule etanercept 50 mg SUBCUT WEEKLY 05/25/20 06/14/20 ferrous sulfate 325 mg (65 mg 325 mg PO TID 05/25/20 06/14/20 iron) tablet gabapentin 300 mg capsule 300 mg PO BID 05/25/20 06/14/20 ibuprofen 600 mg tablet 600 mg PO Q6H PRN Pain (Scale 05/25/20 06/14/20 Score 4-6) pramipexole 1 mg tablet 1 mg PO BID 05/25/20 06/14/20 Previous Rx's Medication Instructions Recorded docusate sodium 100 mg capsule 100 mg PO BID prevent constipation 05/28/20 #20 caps oxycodone 5 mg tablet 5 mg PO Q6H PRN post operative 05/28/20 pain #20 tabs Allergies Allergy/AdvReac Type Severity Reaction Status Date / Time No Known Drug Allergies Allergy Verified 07/02/23 16:51 Patient History Medical History (Updated 12/07/22 @ 00:00 by ) Spontaneous pneumothorax Restless leg syndrome Ankylosing spondylitis Social History household members: spouse Smoking Status: Former smoker Smoking Status: Former smoker alcohol intake frequency: holidays/special occasions only Substance Use Type: marijuana Exam Initial Vital Signs Initial Vital Signs: Vital Signs Temperature 97.8 F 07/02/23 16:45 Pulse Rate 86 07/02/23 16:45 Respiratory Rate 18 07/02/23 16:45 Blood Pressure 107/56 L 07/02/23 16:45 Pulse Oximetry 98 07/02/23 16:45 Oxygen Delivery Method Room Air 07/02/23 16:45 Course Orders Ordered: ED Orders 07/02/23 17:17 XR chest 1V Stat Complete Blood Count AUTO DIFF Stat Comprehensive Metabolic Panel Stat Lipase Stat Magnesium Stat PTT Partial Thromboplastin Dada Stat Prothrombin Time INR Stat Troponin & CK Cardiac Panel Stat EKG-12 Lead Stat Vital Signs Vital signs: Vital Signs - 8 hr 07/02/23 16:45 Temperature 97.8 F Pulse Rate 86 Respiratory Rate 18 Blood Pressure 107/56 L Pulse Oximetry 98 Oxygen Delivery Method Room Air Discharge Plan Departure Prescriptions: No Action pramipexole 1 mg Tablet 1 mg PO BID ferrous sulfate 325 mg (65 mg iron) Tablet 325 mg PO TID gabapentin 300 mg Capsule 300 mg PO BID ibuprofen 600 mg Tablet 600 mg PO Q6H PRN (Reason: Pain (Scale Score 4-6)) cholecalciferol (vitamin D3) 25 mcg (1,000 unit) Capsule 25 mcg PO DAILY etanercept 50 mg SUBCUT WEEKLY oxycodone 5 mg tablet 5 mg PO Q6H PRN (Reason: post operative pain) Qty: 20 0RF docusate sodium 100 mg capsule 100 mg PO BID Qty: 20 0RF Referrals: Holly Stout MD [Primary Care Provider] -
--- NOTE | 2023-07-02 17:43 | DI.CT.S_ITS ---
PROCEDURE: CT HEAD/BRAIN WO CON INDICATIONS: fall TECHNIQUE: Noncontrast 4.5 mm thick angled axial sections acquired from the foramen magnum to the vertex, with coronal and sagittal reformats. For radiation dose reduction, the following was used: automated exposure control, adjustment of mA and/or kV according to patient size. COMPARISON: [facility], CT, HEAD WITHOUT CONTRAST, 03/27/2015, 16:13. FINDINGS: Image quality: Diagnostic. CSF spaces: Basal cisterns are patent. No extra-axial fluid collections. Ventricles are normal in size and shape. Brain: No midline shift. No intracranial masses or hemorrhage. Bhatti-white matter interface is normal. Skull and face: Calvarium and visualized facial bones are intact, without suspicious lesions. Sinuses: Visualized sinuses and mastoids are clear. IMPRESSION: No acute intracranial pathology. Dictated by: Garry Yu M.D. on 07/02/2023 at 18:06 Approved by: Garry Yu M.D. on 07/02/2023 at 18:07
--- NOTE | 2023-07-02 17:43 | DI.CT.S_ITS ---
PROCEDURE: CT CERVICAL SPINE WO CON INDICATIONS: fall TECHNIQUE: Noncontrast 3 mm thick sections acquired from the skull base to the T4 level. Sagittal and coronal reformats were then constructed. For radiation dose reduction, the following was used: automated exposure control, adjustment of mA and/or kV according to patient size. COMPARISON: None. FINDINGS: Image quality: Excellent. Bones: No fractures or dislocations. Visualized superior ribs are intact. Soft tissues: Prevertebral soft tissues are normal in thickness. No paravertebral hematomas. Marked biapical scarring with bullous disease. IMPRESSION: No displaced fracture or traumatic subluxation. Marked biapical scarring with bullous disease. Dictated by: Garry Yu M.D. on 07/02/2023 at 18:07 Approved by: Garry Yu M.D. on 07/02/2023 at 18:09
[2023-07-02 17:49] LABS: Add Manual Diff / Slide Review NO; Basophils Absolute Auto 100 /uL (0-100); Basophils Percent Auto 0.6 % (0-2); Eosinophils Absolute Auto 1100 /uL (0-450); Eosinophils Percent Auto 10.9 % (2-4); Hematocrit 40.7 % (41-53); Lymphocytes Absolute Auto 1000 /uL (1100-4500); Lymphocytes Percent Auto 9.9 % (25-40); Mean Corpuscular HGB Conc 34.4 % (30-36); Mean Corpuscular Hemoglobin 30.4 PG (26-34); Mean Corpuscular Volume 88.5 fL (80-100); Monocytes Absolute Auto 1000 /uL (0-900); Monocytes Percent Auto 10.4 % (3-14); Neutrophils Absolute Auto 6600 /uL (1500-7000); Neutrophils Percent Auto 68.2 % (50-75); Platelet Count 357 X10^3/uL (150-400); Red Blood Cell Count 4.59 X10^6/uL (4.5-5.9); Red Cell Distribution Width 14.2 % (11.6-14.8); White Blood Cell Count 9.7 X10^3/uL (4.5-11.0)
[2023-07-02 17:55] LABS: INR 1.1 (0.9-1.3)
[2023-07-02 17:58] LABS: PTT Partial Thromboplastin Tim 25 SECONDS (25.1-36.5)
[2023-07-02 18:00] LABS: Alanine Aminotransferase 19 IU/L (<50); Albumin 4.3 g/dL (3.5-5.0); Alkaline Phosphatase 110 U/L (38-126); Aspartate Aminotransferase 25 IU/L (17-59); BUN Creatinine Ratio 11.3 (6-22); Bilirubin Total 0.8 mg/dL (0.2-1.3); Blood Urea Nitrogen 11 mg/dL (9-20); Calcium 9.4 mg/dL (8.4-10.2); Carbon Dioxide 30 mmol/L (22-32); Chloride 95 mmol/L (98-107); Creatine Kinase 102 U/L (55-170); Estimated Glomerular Filt Rate > 60 mL/min (>60); Globulin 4.1 g/dL (1.7-4.1); Glucose 128 mg/dL (80-110); HEMOLYSIS < 15 (0-50); Lipase 544 U/L (23-300); Magnesium 1.8 mg/dL (1.6-2.3); Potassium 3.8 mmol/L (3.4-5.1); Sodium 132 mmol/L (137-145); Total Protein 8.4 g/dL (6.3-8.2)
[2023-07-02 18:12] LABS: Troponin I < 0.012 ng/mL (0.01-0.034)
--- NOTE | 2023-07-02 18:21 | ED_ITS ---
HPI - Head Injury General Chief complaint: Head Injury Stated complaint: FELL/lower spine and head inj/eyes rolling Time Seen by Provider: 07/02/23 17:28 Source: patient and family Mode of arrival: Wheelchair History of Present Illness HPI Narrative: Patient with multiple health problems but not taking any blood thinners and no stroke or seizure history comes to the ED with a seizure-like event this afternoon. Earlier today at about 11:00 a.m. he slipped and fell off the back porch sliding down some stairs and hitting his head. Did not lose consciousness nor does he think he broke any bones. In fact he got up on his own was at his side just moments after the fall and said he was awake and alert and appropriate. 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 She quickly pulled out of the donn and opened the car door ran around to his side and then shook him and he woke up. She said the whole event lasted perhaps 45 seconds. He was awake and appropriate immediately after the event without any unusual residual problems he did not have any particular pain per se. He is never had such an event previously. They came to the ED for further evaluation of this. Related Data Home Medications Medication Instructions Recorded Confirmed cholecalciferol (vitamin D3) 25 25 mcg PO DAILY 05/25/20 06/14/20 mcg (1,000 unit) capsule etanercept 50 mg SUBCUT WEEKLY 05/25/20 06/14/20 ferrous sulfate 325 mg (65 mg 325 mg PO TID 05/25/20 06/14/20 iron) tablet gabapentin 300 mg capsule 300 mg PO BID 05/25/20 06/14/20 ibuprofen 600 mg tablet 600 mg PO Q6H PRN Pain (Scale 05/25/20 06/14/20 Score 4-6) pramipexole 1 mg tablet 1 mg PO BID 05/25/20 06/14/20 Previous Rx's Medication Instructions Recorded docusate sodium 100 mg capsule 100 mg PO BID prevent constipation 05/28/20 #20 caps oxycodone 5 mg tablet 5 mg PO Q6H PRN post operative 05/28/20 pain #20 tabs Allergies Allergy/AdvReac Type Severity Reaction Status Date / Time No Known Drug Allergies Allergy Verified 07/02/23 16:51 Patient History Medical History (Updated 07/02/23 @ 18:34 by Gian Jack MD) Spontaneous pneumothorax Restless leg syndrome Ankylosing spondylitis Social History household members: spouse Smoking Status: Former smoker Smoking Status: Former smoker alcohol intake frequency: holidays/special occasions only Substance Use Type: does not use Exam Narrative Exam Narrative: GENERAL: Alert, cooperative and in no distress. HEAD: Atraumatic. Normocephalic. EYES: Sclera are clear without icterus. Extraocular movements are full. ENT: No rhinorrhea. Oropharynx is moist. Mouth exam is benign. NECK: Supple. Full range of motion. CARDIOVASCULAR: Normal rate and rhythm without murmur gallop or rub. RESPIRATORY: Clear to auscultation. Breath sounds equal bilaterally. No wheezes, rales, or rhonchi. GASTROINTESTINAL: Abdomen soft, non-tender, nondistended. EXTREMITIES: No edema, full range of motion. No obvious trauma. Full range of motion of upper and lower extremities without tenderness. Palpation of the entire spine with only minimal soreness in the mid thorax. Full range of motion of the neck. BACK: Normal inspection, no CVA tenderness. NEURO: Nonfocal examination, normal speech SKIN: No rash or erythema of visible areas PSYCH: Normally oriented. Normal range of affect. Appropriate behavior Initial Vital Signs Initial Vital Signs: Vital Signs Temperature 97.8 F 07/02/23 16:45 Pulse Rate 86 07/02/23 16:45 Respiratory Rate 18 07/02/23 16:45 Blood Pressure 107/56 L 07/02/23 16:45 Pulse Oximetry 98 07/02/23 16:45 Oxygen Delivery Method Room Air 07/02/23 16:45 Course Orders Ordered: ED Orders 07/02/23 17:17 XR chest 1V Stat EKG-12 Lead Stat 07/02/23 17:35 Complete Blood Count AUTO DIFF Stat Comprehensive Metabolic Panel Stat Lipase Stat Magnesium Stat PTT Partial Thromboplastin Dada Stat Prothrombin Time INR Stat Troponin & CK Cardiac Panel Stat 07/02/23 17:43 CT cervical spine wo con Stat CT head/brain wo con Stat Vital Signs Vital signs: Vital Signs - 8 hr 07/02/23 16:45 07/02/23 17:12 07/02/23 17:13 Temperature 97.8 F Pulse Rate 86 84 Respiratory Rate 18 Blood Pressure 107/56 L 109/58 L Pulse Oximetry 98 99 Oxygen Delivery Method Room Air 07/02/23 17:13 07/02/23 17:30 07/02/23 17:30 Temperature Pulse Rate 82 82 Respiratory Rate Blood Pressure 105/57 L Pulse Oximetry 97 97 Oxygen Delivery Method 07/02/23 18:01 07/02/23 18:01 Temperature Pulse Rate 81 Respiratory Rate 19 Blood Pressure 120/66 Pulse Oximetry 93 Oxygen Delivery Method Room Air MDM - Head Injury Lab Data 07/02/23 17:35 07/02/23 17:35 Labs: Lab Results 07/02/23 Range/Units 17:35 WBC 9.7 (4.5-11.0) X10^3/uL RBC 4.59 (4.5-5.9) X10^6/uL Hgb 14.0 (13.5-17.5) g/dL Hct 40.7 L (41-53) % MCV 88.5 (80-100) fL MCH 30.4 (26-34) PG MCHC 34.4 (30-36) % RDW 14.2 (11.6-14.8) % Plt Count 357 (150-400) X10^3/uL Neut % (Auto) 68.2 (50-75) % Lymph % (Auto) 9.9 L (25-40) % [place] % (Auto) 10.4 (3-14) % Eos % (Auto) 10.9 H (2-4) % Baso % (Auto) 0.6 (0-2) % Neut # (Auto) 6600 (2287-0410) /uL Lymph # (Auto) 1000 L (0957-3958) /uL [place] # (Auto) 1000 H (0-900) /uL Eos # (Auto) 1100 H (0-450) /uL Baso # (Auto) 100 (0-100) /uL PT 13.0 H (9.4-12.5) SECONDS INR 1.1 (0.9-1.3) APTT 25 L (25.1-36.5) SECONDS Sodium 132 L (137-145) mmol/L Potassium 3.8 (3.4-5.1) mmol/L Chloride 95 L (98-107) mmol/L Carbon Dioxide 30 (22-32) mmol/L BUN 11 (9-20) mg/dL Creatinine 0.97 (0.66-1.25) mg/dL Estimated GFR > 60 (>60) mL/min BUN/Creatinine Ratio 11.3 (6-22) Glucose 128 H (80-110) mg/dL Calcium 9.4 (8.4-10.2) mg/dL Magnesium 1.8 (1.6-2.3) mg/dL Total Bilirubin 0.8 (0.2-1.3) mg/dL AST 25 (17-59) IU/L ALT 19 (<50) IU/L Alkaline Phosphatase 110 (38-126) U/L Total Creatine Kinase 102 (55-170) U/L Troponin I < 0.012 (0.01-0.034) ng/mL Total Protein 8.4 H (6.3-8.2) g/dL Albumin 4.3 (3.5-5.0) g/dL Globulin 4.1 (1.7-4.1) g/dL Albumin/Globulin Ratio 1.0 (1.0-2.8) Lipase 544 H (23-300) U/L [facility] Narrative Medical decision making narrative: Patient appears well. Will fall asleep intermittently while he is giving me a history but his says this has been his typical presentation over the past years and is [facility] with [facility]. He has been entirely neurologically well since the event. Workup here is entirely negative including head CT C-spine and laboratory data. He has interesting laboratory data abnormalities with the differential being unusual on the CBC and metabolic panels right remarkable for a mildly elevated lipase but he has no abdominal pain or tenderness to exam. I recommend outpatient follow-up for these items. It is conceivable that the event today was trauma related seizure or some other seizure-like activity but given the negative workup and normal neurologic examination I think outpatient follow-up is safe and appropriate at this time. Discharge Plan Departure Patient Disposition: Home Clinical Impression: Fall, Seizure-like activity Activity Restrictions/Additional Instructions: It is not entirely clear what happened today, but I can tell you that the head CT is reassuring as is the other testing that we have done. His lipase which is a pancreatic enzyme is mildly elevated and you should talk to your doctor about this in the next 1-3 weeks. Also, the differential on the white blood cell count which may be abnormal simply because of the fall today needs to be re- evaluated to make sure it returns to normal. Follow-up in the next few weeks for this would be adequate as well. If he has another seizure-like event or other unusual neurologic activity you should return to the ED for further evaluation right away. Prescriptions: No Action pramipexole 1 mg Tablet 1 mg PO BID ferrous sulfate 325 mg (65 mg iron) Tablet 325 mg PO TID gabapentin 300 mg Capsule 300 mg PO BID ibuprofen 600 mg Tablet 600 mg PO Q6H PRN (Reason: Pain (Scale Score 4-6)) cholecalciferol (vitamin D3) 25 mcg (1,000 unit) Capsule 25 mcg PO DAILY etanercept 50 mg SUBCUT WEEKLY oxycodone 5 mg tablet 5 mg PO Q6H PRN (Reason: post operative pain) Qty: 20 0RF docusate sodium 100 mg capsule 100 mg PO BID Qty: 20 0RF Referrals: Holly Stout MD [Primary Care Provider] - Stand Alone Forms: Patient Portal/API
== END 2023-07-02 18:47 | disposition home or self-care (01) ==
PROVIDERS: Emergency Medicine; Emergency Provider Family Medicine Addiction Medicine; PCP Internal Medicine
DX: R56.9 Unspecified convulsions (principal); S09.90XA Unspecified injury of head, initial encounter; R07.9 Chest pain, unspecified; W18.30XA Fall on same level, unspecified, initial encounter
CPT/HCPCS: 36415; 70450; 71045; 72125; 80053; 82550; 83690; 83735; 84484; 85025; 85610; 85730; 93005; 93010; 99283; 99284